=== PATIENT | female | born 1940 | race Caucasian/White ===

== ENCOUNTER 2019-05-04 09:08 | Outpatient (CLI) | payer MEDICARE, MEDICAID, SELFPAY ==
--- NOTE | ~2019-05-04 | XR_ITS ---
XR abdomen/kub 1V 05/04/2019 09:25 Indication: Hematuria Procedure: KUB Comparison: No prior studies for comparison. Findings: There is an 8 mm right renal stone. Bowel gas pattern is nonobstructive. There are pelvic c alcifications, likely vascular. Nonobstructive bowel gas pattern. There are cholecystectomy clips. Th ere is a right pleural effusion. Impression: 1: Right nephrolithiasis. 2: Small right pleural effusion. Reviewed, dictated and finalized at location A. Impression: 1: Right nephrolithiasis. 2: Small right pleural effusion.
--- NOTE | ~2019-05-04 | CT_ITS ---
EXAMINATION: CT abdomen pelvis wo/w con DATE: 05/04/2019 10:01 INDICATION: Recurrent bladder infections. TECHNIQUE: Computed tomography (CT) of the abdomen and pelvis was performed without intravenous contr ast. The dose-length product was 1132.98 mGy-cm. Automated exposure control and iterative reconstruct ion technique were employed. COMPARISON: Pet/CT dated 04/10/2018 FINDINGS: Status post partial right pneumonectomy with right pleural effusion. Mediastinal shift to t he right, consistent with volume loss. There is some solid 9 x 7 mm nodule in the lingula which is no t significantly changed allowing for differences of technique from prior examination. There is bronch iectasis centrally in the right lung with peripheral reticulonodular densities, most likely infectiou s/inflammatory. Status post cholecystectomy. The liver surface appears nodular, suspicious for cirrhosis. Status post cholecystectomy. The spleen, pancreas, adrenal glands are unremarkable. There is a 3.3 cm left renal cyst. There are small subcentimeter hypodensities of both kidneys, also likely benign cysts. Bowel p attern is nonobstructive. Colonic diverticulosis without evidence for diverticulitis. There is a 3.2 cm infrarenal abdominal aortic aneurysm. No lymphadenopathy. Normal appendix. No free air or free flu id. Bladder is unremarkable. Uterus is likely surgically absent. There is a 6 mm nonobstructing right renal stone. IMPRESSION: 1. 6 mm nonobstructing right renal stone. 2: Nodular liver surface, suspicious for cirrhosis. 3: Infrarenal abdominal aortic aneurysm measuring 3.2 cm. 4: Status post partial right pneumonectomy with pleural effusion. Mediastinal shift to the right, con sistent with volume loss. 5:. 9 x 7 mm subsolid nodule in the lingula without significant change. 6: Coarse reticulonodular densities in the visualized lung periphery, most likely infectious/inflamma tory. Bronchiectasis. Reviewed, dictated and finalized at location A. IMPRESSION: 1. 6 mm nonobstructing right renal stone. 2: Nodular liver surface, suspicious for cirrhosis. 3: Infrarenal abdominal aortic aneurysm measuring 3.2 cm. 4: Status post partial right pneumonectomy with pleural effusion. Mediastinal s hift to the right, consistent with volume loss. 5:. 9 x 7 mm subsolid nodule in the lingula without significant change. 6: Coarse reticulonodular densities in the visualized lung periphery, most like ly infectious/inflammatory. Bronchiectasis.
[2019-05-04 09:37] LABS: Estimated Glomerular Filt Rate 60
== END 2019-05-04 09:09 | disposition home or self-care (01) ==
PROVIDERS: PCP Family Medicine; Visit Provider Nurse Practitioner Adult Health
DX: R31.29 Other microscopic hematuria (principal); N20.0 Calculus of kidney; R93.2 Abnormal findings on diagnostic imaging of liver and biliary tract; I71.4 Abdominal aortic aneurysm, without rupture; Z90.2 Acquired absence of lung [part of]; J90 Pleural effusion, not elsewhere classified; R91.8 Other nonspecific abnormal finding of lung field
CPT/HCPCS: 36415; 74018; 74178; Q9967

== ENCOUNTER 2019-07-27 00:29 | Outpatient (CLI) | payer MEDICARE, MEDICAID, SELFPAY ==
[2019-07-27 17:00] LABS: SARS-CoV-2 RNA PCR Negative
== END 2019-07-27 00:30 | disposition home or self-care (01) ==
LOC: ANHCOVIDDT 00:29
PROVIDERS: PCP Family Medicine; Visit Provider Internal Medicine Gastroenterology
DX: Z01.818 Encounter for other preprocedural examination (principal); Z11.59 Encounter for screening for other viral diseases
CPT/HCPCS: 87635; C9803; U0003

== ENCOUNTER 2019-07-29 01:40 | Day surgery (SDC) | payer MEDICARE, MEDICAID, SELFPAY ==
[2019-07-22 16:02] VITALS: BMI 31.2
[2019-07-29] MEDS: LACTATED RINGERS 1,000 ML 150 ML IV CONT (07:47)
--- NOTE | 2019-07-29 07:47 | PM.HPGS ---
History of Present Illness History of Present Illness Consent: Risks, benefits, and alternatives have been discussed and questions answered. Patient agrees to proceed with procedure. Chief complaint: hx of polyps Narrative: Lorie Chauhan is a 79 year old female with history of colon polyps having screening colonoscopy COUNT INCLUDES THE [facility] Past Medical History Medical History Hypertension Lung cancer Status post right lower lobectomy in May 2018. She received chemotherapy and radiation. She is followed by an oncologist at [facility] [place]. Tobacco dependence Surgical History Surgical History History of cholecystectomy History of lobectomy of lung Right lower lobectomy for lung cancer. History of partial hysterectomy Social History Social History Social History: Mrs. Chauhan is and lives in her own home in [place]. She designates her son, Golden Chauhan, as her surrogate decision maker and she wishes to be a full code. She smokes a half a pack of cigarettes per day and has for 40 years. She denies alcohol and illicit drug use. Her primary care provider is Dr. Lourdes Glasgow. Meds Home Medications and Allergies Home Medications Medication Instructions Recorded Confirmed Type hydrochlorothiazide 25 mg PO DAILY 01/09/19 07/29/19 History rivaroxaban [Xarelto] 20 mg PO QPM 30 Days #30 tablet 01/27/19 07/29/19 Rx cephalexin 250 mg PO DAILY 07/22/19 07/29/19 History Allergies Allergy/AdvReac Type Severity Reaction Status Date / Time povidone-iodine AdvReac Rash Verified 07/29/19 07:36 [From Betadine] soap [From Betadine] AdvReac Rash Verified 07/29/19 07:36 Exam Resp: Auscultation: clear to auscultation bilaterally Cardio: Rate: regular rate Rhythm: regular rhythm GI: GI Palp: Yes Soft to palpation and No Tenderness to palpation present (GI) Assessment and Plan Assessment and plan (1) Personal history of colonic polyps: Code(s): Z86.010 - Personal history of colonic polyps Status: Acute Assessment and Plan: Colonoscopy with possible biopsy or polypectomy or cautery or injection of substances.
--- NOTE | 2019-07-29 07:57 | P.PNAN_ITS ---
Anes - Initial Pre Proc Eval Procedure: Operation Date: 07/29/19 08:30 Proposed Procedures p Screening Colonoscopy - Edgardo Acevedo MD Date/Time: 07/29/19 07:57 Surgeon: Edgardo Acevedo MD Pre Op Diagnosis: hx of polyps Patient Data Age: 79 Gender: F Height: 5 ft 1 in Weight: 76.4 kg Allergies Allergy/AdvReac Type Severity Reaction Status Date / Time povidone-iodine AdvReac Rash Verified 07/29/19 07:36 [From Betadine] soap [From Betadine] AdvReac Rash Verified 07/29/19 07:36 Home Medications Medication Instructions Recorded Confirmed Type hydrochlorothiazide 25 mg PO DAILY 01/09/19 07/29/19 History rivaroxaban [Xarelto] 20 mg PO QPM 30 Days #30 tablet 01/27/19 07/29/19 Rx cephalexin 250 mg PO DAILY 07/22/19 07/29/19 History Patient hx anesthesia problems: none Family hx anesthesia problems: none PMFSH Past Medical History Medical History Hypertension Lung cancer Status post right lower lobectomy in May 2018. She received chemotherapy and radiation. She is followed by an oncologist at [facility]. Tobacco dependence Surgical History Surgical History History of cholecystectomy History of lobectomy of lung Right lower lobectomy for lung cancer. History of partial hysterectomy Family History Family History Sibling Family history of malignant neoplasm Social History Social History Social History: Mrs. Chauhan is and lives in her own home in [place]. She designates her son, Golden Chauhan, as her surrogate decision maker and she wishes to be a full code. She smokes a half a pack of cigarettes per day and has for 40 years. She denies alcohol and illicit drug use. Her primary care provider is Dr. Lourdes Glasgow. Anes - Eval Final PreProcedure Day of Procedure 07/29/19 07:57 Patient weight: obese Heart: regular rate and rhythm Lungs: clear to auscultation Airway: Mallampati scale class 1 Neurological: alert and oriented Last oral intake: >/= 8 hours ASA classification: III Emergent: no Anesthetic plan: proceed Anesthesia type and monitoring: general GIVS and standard monitoring Informed Consent: The patient's anesthetic plan and its attendant risks and benefits were discussed with the patient/family/POA. Questions were solicited and answers provided to the satisfaction of the patient/family/POA.
[2019-07-29 08:42] VITALS: BP 89/45; PULSE 80; RESP 19; O2SAT 97
[2019-07-29 08:52] VITALS: BP 95/54; PULSE 87; RESP 20; O2SAT 98
[2019-07-29 09:02] VITALS: BP 104/68; PULSE 88; RESP 25; O2SAT 97
== END 2019-07-29 09:21 | disposition home or self-care (01) ==
PROVIDERS: PCP Family Medicine; Visit Provider Internal Medicine Gastroenterology
PROC: 0DJD8ZZ Inspection of Lower Intestinal Tract, Via Natural or Artificial Opening Endoscopic (ICD-10-PCS; CPT 45378; principal; 2019-07-29 08:30)
DX: Z12.11 Encounter for screening for malignant neoplasm of colon (principal); D12.3 Benign neoplasm of transverse colon; K57.30 Diverticulosis of large intestine without perforation or abscess without bleeding; K64.8 Other hemorrhoids; I10 Essential (primary) hypertension; Z79.01 Long term (current) use of anticoagulants; Z85.118 Personal history of other malignant neoplasm of bronchus and lung; Z90.2 Acquired absence of lung [part of]; E66.9 Obesity, unspecified; Z68.31 Body mass index [BMI] 31.0-31.9, adult; Z87.891 Personal history of nicotine dependence
CPT/HCPCS: 45385; 88305; J2704; J7120

== ENCOUNTER 2020-12-16 09:16 | Outpatient (CLI) | payer MEDICARE, MEDICAID, SELFPAY ==
--- NOTE | ~2020-12-16 | US_ITS ---
EXAMINATION: US aorta EXAM DATE: 12/16/2020 09:56 INDICATION: Abdominal aortic aneurysm. TECHNIQUE: Multiple grayscale and Doppler images of the abdominal aorta were obtained (by a technolog ist who performed the scan) and subsequently reviewed. There is no prior study for comparison. Corre lation was made with CT abdomen pelvis 05/03/2020. FINDINGS: The proximal abdominal aorta measures 3.0 cm in maximal dimension. Mid to distal abdominal aorta chaparro ures up to 3.6 cm in maximal dimension (previously was about 3.3 cm 1.5 years ago). There may indicat e slight increase in size, given differences in technique. IMPRESSION: 1. Mid to distal abdominal aortic 3.6 cm aneurysm. Reviewed, dictated and finalized at location A.
== END 2020-12-16 09:17 | disposition home or self-care (01) ==
PROVIDERS: PCP Family Medicine; Visit Provider Family Medicine
DX: I71.4 Abdominal aortic aneurysm, without rupture (principal)
CPT/HCPCS: 76775

== ENCOUNTER 2023-09-12 09:53 | Emergency (ER) | payer OTHER, SELFPAY ==
--- NOTE | 2023-09-12 10:06 | ED.DIZZY ---
HPI - Dizziness General Chief Complaint: Dizziness Stated Complaint: feels bad Time Seen by Provider: 09/12/23 10:08 Source: patient, RN notes reviewed and old records reviewed Mode of arrival: ambulatory Limitations: no limitations History of Present Illness HPI Narrative: Patient presents to Express Care initially complaining of dizziness. She reports that she has felt a little lightheaded and off balance for about 1 week. She reports that in the past she has had a UTI that caused her to feel the same way. She denies any back pain. She does report some urinary frequency and burning over the past couple of days. She denies any fever, chills, sweats. She does report chronic cough, states that she is a smoker. Is observed ambulating with a steady gait. She voices no other concerns or complaints today. Related Data Home Medications Medication Instructions Recorded Confirmed hydrochlorothiazide 25 mg tablet 25 mg PO DAILY 01/09/19 09/12/23 Allergies Allergy/AdvReac Type Severity Reaction Status Date / Time povidone-iodine AdvReac Rash Verified 09/12/23 10:14 [From Betadine] soap [From Betadine] AdvReac Rash Verified 09/12/23 10:14 Review of Systems Review of Systems: All systems reviewed & are unremarkable except as noted in HPI and below Constitutional: Constitutional: Reports as per HPI and Reports no additional constitutional complaints ENT: Reports system reviewed and no additional complaints, except as documented Cardiovascular: Cardiovascular: Reports no additional cardiovascular complaints Respiratory: Respiratory: Reports as per HPI and Reports no additional respiratory complaints Gastrointestinal: Gastrointestinal: Reports as per HPI and Reports no additional gastrointestinal complaints Genitourinary: Genitourinary: Reports dysuria, Denies flank pain and Reports urinary urgency Musculoskeletal: Musculoskeletal: Denies back pain Neurologic: Denies Abnormal speech present, Denies abnormal gait, Denies confusion, Reports dizziness, Denies frequent falls, Denies focal weakness, Denies numbness, Denies tingling and Denies paresthesias [facility] Past Medical History Medical History (Updated 09/12/23 @ 10:28 by Pati Rubio APRN) Hypertension Lung cancer Status post right lower lobectomy in May 2018. She received chemotherapy and radiation. She is followed by an oncologist at [facility] [place]. Tobacco dependence Surgical History Surgical History History of cholecystectomy History of lobectomy of lung Right lower lobectomy for lung cancer. History of partial hysterectomy Family History Family History Sibling Family history of malignant neoplasm Social History Social History Social History: Mrs. Chauhan is and lives in her own home in [place]. She designates her son, Golden Chauhan, as her surrogate decision maker and she wishes to be a full code. She smokes a half a pack of cigarettes per day and has for 40 years. She denies alcohol and illicit drug use. Her primary care provider is Dr. Lourdes Glasgow. Comments At the time of my signature, I reviewed and agree with the nursing past medical, surgical, social, and family history. There is no relevant family history pertinent to the patient complaint. Exam Const: General: cooperative, no acute distress, alert and awake Orientation/consciousness: oriented to person, oriented to place and oriented to time HENMT: Head: normal to inspection Ears: TM's normal bilaterally Resp: Effort & Inspection: normal respiratory effort and able to speak in complete sentences Auscultation: clear to auscultation bilaterally, no crackles, no rales, no rhonchi, no wheezes and diminished lung sounds bilateral throughout Cardio: Palpation: normal PMI Rate: regular rate Rhy
[2023-09-12 10:08] VITALS: BP 141/103; PULSE 110; RESP 16; TEMP 36.7; O2SAT 98
[2023-09-12 10:22] LABS: EDUAAPPEAR Clear; EDUABILI Negative; EDUABLOOD Trace; EDUACOLOR1 Yellow; EDUAGLUCOSE Negative; EDUAKETONE Negative; EDUALEUKO 1+; EDUANITRATE Negative; EDUAPROTEIN Negative; EDUASPGRAVITY 1.015; EDUAUROBILI 0.2
[2023-09-12 10:24] VITALS: BP 121/77; PULSE 82
== END 2023-09-12 10:43 | disposition home or self-care (01) ==
PROVIDERS: Emergency Provider Nurse Practitioner Family; PCP Nurse Practitioner Family
DX: N39.0 Urinary tract infection, site not specified (principal); I10 Essential (primary) hypertension; Z85.118 Personal history of other malignant neoplasm of bronchus and lung; Z90.2 Acquired absence of lung [part of]; Z92.21 Personal history of antineoplastic chemotherapy; Z92.3 Personal history of irradiation; Z90.711 Acquired absence of uterus with remaining cervical stump
CPT/HCPCS: 81003; 87086; 87088; 99213; G0463

== ENCOUNTER 2023-09-23 11:17 | Emergency (ER) | payer OTHER, SELFPAY ==
[2023-09-23] VITALS (21 sets, daily range): BP systolic 113–157; BP diastolic 78–101; PULSE 97–149; RESP 13–28; TEMP 36.5–36.6; O2SAT 87–97
--- NOTE | ~2023-09-23 | CT_ITS ---
EXAMINATION: CT brain wo con DATE: 09/23/2023 14:36 INDICATION: Headache TECHNIQUE: Computed tomography (CT) of the head was performed without intravenous contrast. Sagittal and coronal reconstructions were performed. The mA was adjusted according to patient size. Iterative reconstruction technique was employed. The dose-length product was 529.67 mGy-cm. COMPARISON: head CT dated 03/01/2019 FINDINGS: No acute intracranial hemorrhage, acute infarction or abnormal extra axial fluid collection. There is mild scattered white matter hypoattenuation consistent with chronic small vessel ischemic disease. V entricles are normal and symmetric. Symmetric dystrophic calcifications at the bilateral basal gangli a. No mass/mass effect. Changes of bilateral intraocular lens replacement. Intracranial calcified cer ebral atherosclerosis is noted. The orbits, paranasal sinuses and mastoid air cells are normal. IMPRESSION: 1. Normal aging brain. No acute intracranial process. Reviewed, dictated and finalized at location A.
--- NOTE | 2023-09-23 13:41 | ED.HA ---
HPI - Headache General Chief Complaint: Headache Stated Complaint: headache, nausea Time Seen by Provider: 09/23/23 13:16 History of Present Illness HPI Narrative: Pt presents with OLSEN and dizziness today. Pt says her dizziness is better when still and worse when she moves her head or gets up and walks. Pt is unsteady on her feet and gets nauseated. Pt denies one sided weakness. Pt also has frequent UTI's and just finished macrobid course. Related Data Home Medications Medication Instructions Recorded Confirmed hydrochlorothiazide 25 mg tablet 25 mg PO DAILY 01/09/19 09/12/23 Allergies Allergy/AdvReac Type Severity Reaction Status Date / Time povidone-iodine AdvReac Rash Verified 09/12/23 10:14 [From Betadine] soap [From Betadine] AdvReac Rash Verified 09/12/23 10:14 Review of Systems Review of Systems: All systems reviewed & are unremarkable except as noted in HPI and below PMFSH Past Medical History Medical History (Updated 09/23/23 @ 15:21 by Reg Rushing III, DO) Hypertension Lung cancer Status post right lower lobectomy in May 2018. She received chemotherapy and radiation. She is followed by an oncologist at [facility]. Tobacco dependence Surgical History Surgical History History of cholecystectomy History of lobectomy of lung Right lower lobectomy for lung cancer. History of partial hysterectomy Family History Family History Sibling Family history of malignant neoplasm Social History Social History Social History: Mrs. Chauhan is and lives in her own home in [place]. She designates her son, Golden Chauhan, as her surrogate decision maker and she wishes to be a full code. She smokes a half a pack of cigarettes per day and has for 40 years. She denies alcohol and illicit drug use. Her primary care provider is Dr. Lourdes Glasgow. Exam Const: General: healthy appearing and no acute distress Nutritional Appearance: well nourished Orientation/consciousness: patient oriented x3 Limitations: no limitations HENMT: Ears: TM abnormal bulging on the left Eyes: Pupils: Equal, round and reactive pupils present EOM: EOMs intact bilaterally Neck: Neck: normal visual inspection Resp: Effort & Inspection: normal respiratory effort Auscultation: clear to auscultation bilaterally Cardio: Rate: regular rate Rhythm: regular rhythm GI: GI Palp: Yes Soft to palpation and No Tenderness to palpation present (GI) Auscultation: normal bowel sounds Skin: General skin exam: normal color Rashes: no rashes Wounds: no wounds Neuro: General: patient oriented x3, moves all extremities, no meningeal signs, no focal motor deficits and CN's II-XI intact bilaterally Cranial nerves: Yes Nystagmus present Speech: normal speech Other: dizziness reproduced with moving head to right and beter when still. Extrem: General: normal to inspection and no clubbing, cyanosis or edema Psych: Mental Status: mental status grossly normal Affect: normal affect Attitude: cooperative Course Vital Signs Vital signs: Vital Signs Pulse Rate 149 H 09/23/23 11:22 Pulse Oximetry 97 09/23/23 11:22 Temperature 97.9 F 09/23/23 15:45 Pulse Rate 110 H 09/23/23 14:48 Respiratory Rate 16 09/23/23 14:48 Blood Pressure 126/94 H 09/23/23 13:31 Pulse Oximetry 97 09/23/23 15:32 MDM - Headache MDM Narrative Medical decision making narrative: Pt has pretty classic vertigo symptoms so will give meclizine but also has olsen and chronic uti's so will get CT head and check labs and UA. labs and UA fine. CT neg. Pt feels better after antivert. home on antivert and zofran Lab Data 09/23/23 12:10 09/23/23 12:10 Labs: Lab Results 09/23/23 Range/Units 12:10 WBC 8.1 (4.
[2023-09-23 13:51] LABS: Basophils Absolute Auto 0.1 K/mm3 (0.0-0.1); Basophils Percent Auto 0.7 % (0.2-1.2); Eosinophils Absolute Auto 0.1 K/mm3 (0-0.3); Eosinophils Percent Auto 1.2 % (0-4.4); Hematocrit 45.6 % (37.0-47.0); Hemoglobin 15.3 g/dL (12.0-15.0); Immature Granulocyte Absolute 0.02 K/mm3 (0.00-0.031); Immature Granulocyte Percent A 0.2 % (0-0.5); Lymphocytes Absolute Auto 1.32 K/mm3 (0.9-3.2); Lymphocytes Percent Auto 16.3 % (18.3-44.2); Mean Corpuscular HGB Conc 33.6 g/dl (32-36); Mean Corpuscular Hemoglobin 31.5 pg (26-34); Mean Platelet Volume 10.3 fl (7.4-10.4); Monocytes Absolute Auto 0.4 K/mm3 (0.1-0.6); Monocytes Percent Auto 4.8 % (2.6-8.5); Neutrophils Absolute Auto 6.2 K/mm3 (1.3-6.7); Neutrophils Percent Auto 76.8 % (45.5-73.1); Platelet Count Result 182 k/mm3 (150-375); Red Blood Count 4.85 M/mm3 (4.2-5.4); Red Cell Distribution Width 13.6 % (11.5-14.5); White Blood Count 8.1 K/mm3 (4.5-10.0)
[2023-09-23 13:56] LABS: Add Urine Microscopic? YES; Alanine Aminotransferase 12 U/L (6-35); Albumin Level 4.2 g/dL (3.5-5.1); Alkaline Phosphatase 95 U/L (38-126); Anion Gap 10 mmol/L (4-12); Appearance Urine Clear (Clear); Aspartate Amino Transferase 35 U/L (14-36); Bacteria Urine None Seen /hpf; Bilirubin Urine Negative (Negative); Bilirubin,Total 0.7 mg/dL (0.2-1.3); Blood Urea Nitrogen 18 mg/dL (7-17); Blood Urine Trace (Negative); Calcium 9.5 mg/dL (8.4-10.2); Carbon Dioxide 27 mmol/L (22-30); Chloride 99 mmol/L (98-107); Color Urine Yellow (Yellow); Estimated CRCL calculation 46 ml/min; Estimated Glomerular Filt Rate > 60; Glucose 106 mg/dL (65-110); Glucose Urine UA Negative (Negative); Ketones Urine Negative (Negative); Leukocyte Esterase Ur Trace LEU/UL (Negative); Nitrate Urine Negative (Negative); Non Pathogenic Casts 0-2; Potassium 4.1 mmol/L (3.4-5.0); Protein Urine Negative (Negative); RBC Urine 0-2 /hpf (0-2); Sodium 136 mmol/L (137-145); Specific Grav Ur 1.012 (1.001-1.035); Squamous Epithelial Cell Urine Few /hpf (Few); Urobilinogen Urine 0.2 mg/dL (<2.0); WBC Urine 0-5 /hpf (0-3)
[2023-09-23] MEDS: MECLIZINE HCL 25 MG TABLET PO (14:14)
[2023-09-23] MEDS: fentaNYL CITRATE INJ (*CRX) 100 MCG/2 ML VIAL 25 MCG IV PUSH (14:14)
[2023-09-23] MEDS: ONDANSETRON INJ 4 MG/2 ML VIAL IV PUSH (14:14)
== END 2023-09-23 15:48 | disposition home or self-care (01) ==
PROVIDERS: Emergency Provider Emergency Medicine; PCP Nurse Practitioner Family
DX: R42 Dizziness and giddiness (principal); I10 Essential (primary) hypertension; F17.210 Nicotine dependence, cigarettes, uncomplicated; Z85.118 Personal history of other malignant neoplasm of bronchus and lung; Z92.21 Personal history of antineoplastic chemotherapy; Z92.3 Personal history of irradiation; Z90.2 Acquired absence of lung [part of]; Z90.49 Acquired absence of other specified parts of digestive tract; Z90.711 Acquired absence of uterus with remaining cervical stump
CPT/HCPCS: 36415; 70450; 80053; 81001; 85025; 96374; 96375; 99284; A9270; J2405; J3010

== ENCOUNTER 2024-05-04 16:02 | Emergency (ER) | payer OTHER, SELFPAY ==
[2024-05-04 16:16] VITALS: BP 135/90; PULSE 124; RESP 19; TEMP 37.1; O2SAT 97
--- NOTE | 2024-05-04 16:29 | ECG_ITS ---
Test Date: 2024-05-04 16:40:01 Measurements Intervals [place] Rate: 105 P: 58 MT: 140 QRS: 38 QRSD: 108 T: 51 QT: 328 QTc: 435 Interpretive Statements SINUS TACHYCARDIA WITH FREQUENT SUPRAVENTRICULAR PREMATURE COMPLEXES No previous ECG available for comparison Electronically Signed On 05-05-2024 15:56:50 CDT by Lalit Guerrero M.D.
[2024-05-04 16:30] VITALS: PULSE 105; RESP 26; O2SAT 97
[2024-05-04 16:50] LABS: EDCOVIDSCREEN Negative (Negative); EDINFLUASCREEN Negative (Negative); EDINFLUBSCREEN Negative (Negative)
--- NOTE | 2024-05-04 17:05 | ED_ITS ---
HPI - URI/Sore Throat General Chief Complaint: Upper Respiratory Infection Stated Complaint: flu symptoms Time Seen by Provider: 05/04/24 16:50 Source: patient, family (Granddaughter) and RN notes reviewed Mode of arrival: ambulatory Limitations: no limitations History of Present Illness HPI Narrative: Patient presents today complaining of a 3 day history of cough, shortness of breath, headache, sneezing, right mid back pain, nausea, subjective fever. She states diarrhea started yesterday and she had 1 episode of incontinence today. Granddaughter who accompanied her here today states, ?she is not quite with it. ? Patient has taken some [id number]-snmtxpy medication symptoms. History of lung cancer with right lobectomy. Patient does continue to smoke Related Data Home Medications ?Medication ?Instructions ?Recorded ?Confirmed ?Last Taken ?Type budesonide 160 mcg-glycopyr 9 inh inhalation 05/04/24 Unknown History mcg-formot 4.8 mcg/actuation HFA inhaler (Breztri Aerosphere) fluticasone 250 mcg-salmeterol 50 inhalation 05/04/24 Unknown History mcg/dose blistr powdr for inhalation hydrochlorothiazide 12.5 mg tablet mg 05/04/24 Unknown History Allergies Allergy/AdvReac Type Severity Reaction Status Date / Time povidone-iodine (From AdvReac Rash Verified 05/04/24 16:05 Betadine) soap (From Betadine) AdvReac Rash Verified 05/04/24 16:05 Review of Systems Review of Systems: CONSTITUTIONAL: + subjective fever EYES: Denies visual changes, redness, or discharge. ENT: Denies rhinorrhea, congestion, sore throat, or otalgia.+ sneezing CARDIOVASCULAR: Denies chest pain, palpitations, or edema. RESPIRATORY: + cough, shortness of breath GASTROINTESTINAL: Denies abdominal pain, vomiting. + nausea, diarrhea GENITOURINARY: Denies dysuria or hematuria. SKIN: Denies rash, itching, or wounds. MUSCULOSKELETAL: Denies joint pain, or myalgia.+ back pain NEUROLOGIC: Denies numbness, tingling, or weakness.+ headache PSYCH: Denies depression or anxiety. [facility] Past Medical History Medical History Tobacco dependence Lung cancer Status post right lower lobectomy in May 2018. She received chemotherapy and radiation. She is followed by an oncologist at [facility]. Hypertension Surgical History Surgical History History of partial hysterectomy History of lobectomy of lung Right lower lobectomy for lung cancer. History of cholecystectomy Family History Family History Sibling Family history of malignant neoplasm Social History Social History Social History: Mrs. Chauhan is and lives in her own home in [place]. She designates her son, Golden Chauhan, as her surrogate decision maker and she wishes to be a full code. She smokes a half a pack of cigarettes per day and has for 40 years. She denies alcohol and illicit drug use. Her primary care provider is Dr. Lourdes Glasgow. Comments At time of signature, I have reviewed and agree with nursing past medical, surgical, social and family history unless otherwise noted. Please see nursing chart for further information. There is no relevant family history pertinent to the presenting complaint Exam Narrative: GENERAL: Mildly ill-appearing, well-nourished, and in no acute distress. HEAD: Normocephalic, atraumatic. EYES: EOMI. No redness or drainage. Conjunctivae normal. ENT: Mucous membranes pink and moist. Nares clear. No rhinorrhea. TMs normal bilaterally. Throat normal. Uvula midline. NECK: Normal AROM. Supple. No lymphadenopathy. CHEST: Mildly labored. Expiratory wheezes throughout. Diminished in the left lower lobe. HEART: Regular rhythm. Tachycardic. No murmur appreciated. EXTREMITIES: Normal range of motion. Mild edema feet, baseline per g randdaughter SKIN: Warm, dry, no rash. Capillary refill normal. Normal skin turgor. NEURO: No focal deficits. Alert and oriented x3. PSYCH: Normal affect. No signs of depression or anxiety. Course Course Level of Care: Express Care Visit Vital Signs Vital signs: Vital Signs Temperature 98.8 F 05/04/24 16:16 Pulse Rate 124 H 05/04/24 16:16 Respiratory Rate 19 05/04/24 16:16 Blood Pressure 135/90 05/04/24 16:16 Pulse Oximetry 97 05/04/24 16:16 Oxygen Delivery Room Air 05/04/24 16:16 Temperature 98.8 F 05/04/24 16:16 Pulse Rate 105 H 05/04/24 16:30 Respiratory Rate 26 H 05/04/24 16:30 Blood Pressure 135/90 05/04/24 16:16 Pulse Oximetry 97 05/04/24 16:30 Oxygen Delivery Room Air 05/04/24 16:16 Reviewed Transfer Transfered to: [place] Transportation: Other (Private vehicle) Transfer rationale: Shortness of breath, cough, tachycardia Accepting physician: Karan. Report given to Flor Arias NP MDM - URI/Sore Throat MDM Narrative Medical decision making narrative: Patient will be transferred to the ER for further evaluation and treatment due to shortness of breath, wheezing, tachycardia. Influenza and COVID swabs negative. Differential Diagnosis Differential diagnosis: Likely upper respiratory infection, viral infection, influenza and other (COVID-19, pneumonia, sepsis, respiratory distress) Lab Data Attestation: I reviewed the patient's lab results. Labs: Lab Results 05/04/24 Range/Units 16:48 POC Influenza A Ag Negative (Negative) POC Influenza B Ag Negative (Negative) POC SARS CoV-2 Ag Negative (Negative) ECG Data EKG #1: Attestation: I personally reviewed and interpreted this ECG as follows: ECG completion date: 05/04/24 ECG completion time: 16:40 Prior ECG tracings: not available for review (PDF would not open. Review of report grossly similar.) Interpretation: Sinus tachycardia with frequent supraventricular premature complexes. Heart rate 105, NH interval 140 Critical Care Time Critical Care Time Critical Care Time: No Discharge Plan Discharge Clinical Impression: Shortness of breath Cough Qualifiers: Cough type: acute Qualified Code(s): R05.1 - Acute cough Patient Disposition: Acute Care Hospital Condition: Stable Patient Language: Indonesian Prescriptions: No Action hydrochlorothiazide 12.5 mg tablet Breztri Aerosphere 160-9-4.8 mcg/actuation HFA aerosol inhaler INHALATION fluticasone propion-salmeterol 250-50 mcg/dose blister with device INHALATION Follow-up/Referrals: Davon,Smiley, [employer] [Primary Care Provider] - Time of Disposition: 17:06
== END 2024-05-04 17:05 | disposition short-term general hospital (02) ==
PROVIDERS: Emergency Provider Nurse Practitioner; PCP Nurse Practitioner Family
DX: R06.02 Shortness of breath (principal); R05.1 Acute cough; R00.0 Tachycardia, unspecified; Z20.822 Contact with and (suspected) exposure to COVID-19; I10 Essential (primary) hypertension; F17.210 Nicotine dependence, cigarettes, uncomplicated; Z85.118 Personal history of other malignant neoplasm of bronchus and lung; Z90.2 Acquired absence of lung [part of]; Z90.711 Acquired absence of uterus with remaining cervical stump
CPT/HCPCS: 87426; 87804; 93005; 99213; G0463

== ENCOUNTER 2024-05-04 17:29 | Emergency (ER) | payer OTHER, SELFPAY ==
--- NOTE | ~2024-05-04 | XR_ITS ---
EXAMINATION: XR chest 2V Exam Date/Time: 05/04/2024 18:27 CDT HISTORY: shortness of breath, cough Comparison: 01/26/2019. RESULT: Lines, tubes, and devices: Cholecystectomy clips. Lungs and pleura: Mild diffuse reticular opacities. Mild bilateral costophrenic angle blunting, righ t greater than left. Lobectomy changes in the right hemithorax. Cardiomediastinal silhouette: Stable. Dilated central pulmonary arteries as can be seen with pulmona ry hypertension Other: No acute osseous or upper abdominal finding. IMPRESSION: Mild interstitial edema. Small bilateral pleural effusions. Reviewed, dictated and finalized at location K.
--- NOTE | 2024-05-04 17:48 | ECG_ITS ---
Test Date: 2024-05-04 17:57:53 Measurements Intervals [place] Rate: 118 P: 75 [place]: 150 QRS: 62 QRSD: 108 T: 62 QT: 310 QTc: 435 Interpretive Statements SINUS TACHYCARDIA WITH PACS Compared to ECG 05/04/2024 16:40:01 No significant changes Electronically Signed On 05-05-2024 15:57:42 CDT by Lalit Guerrero M.D.
--- NOTE | 2024-05-04 17:49 | ED.SOB ---
HPI - SOB/Dyspnea General Chief Complaint: Recheck/Abnormal Lab/Rx <Gerda Arias APRN - Last Filed: 05/04/24 17:52> Stated Complaint: sent from for abnormal labs <Gerda Arias APRN - Last Filed: 05/04/24 17:52> Time Seen by Provider: 05/04/24 17:49 <Gerda Arias APRN - Last Filed: 05/04/24 17:52> Focused HPI: Patient is an 84-year-old female who presents from urgent care. She endorses recent shortness of breath, recurrent mid back pain, cough, wheezing, and diarrhea yesterday. Per the healthcare provider at urgent care, patient presented there with an elevated heart rate along with the other symptoms listed above. Patient's medical history includes lung cancer and a right lobectomy. GENERAL: Well-appearing, well-nourished, and in no acute distress. HEAD: Normocephalic, atraumatic. CHEST: Clear to auscultation. ?No respiratory distress. HEART: Regular rate and rhythm.? NEURO: ?Alert and oriented x3. Patient screened in triage and initial orders placed.? ?Additional care and disposition to be based upon?diagnostic testing and treatment. <Gerda Arias APRN - Last Filed: 05/04/24 17:52> History of Present Illness HPI Narrative: Agree with HPI. Cough for several days with occasional shortness of breath. No chest pain. Sent here for elevated heart rate. <Miles Almanza MD - Last Filed: 05/04/24 22:43> Related Data Home Medications: Home Medications ?Medication ?Instructions ?Recorded ?Confirmed ?Last Taken ?Type budesonide 160 mcg-glycopyr 9 inh inhalation 05/04/24 Unknown History mcg-formot 4.8 mcg/actuation HFA inhaler (Breztri Aerosphere) fluticasone 250 mcg-salmeterol 50 inhalation 05/04/24 Unknown History mcg/dose blistr powdr for inhalation hydrochlorothiazide 12.5 mg tablet mg 05/04/24 Unknown History <Gerda Arias APRN - Last Filed: 05/04/24 17:52> Allergies/Adverse Reactions: Allergies Allergy/AdvReac Type Severity Reaction Status Date / Time povidone-iodine (From AdvReac Rash Verified 05/04/24 16:05 Betadine) soap (From Betadine) AdvReac Rash Verified 05/04/24 16:05 <Gerda Arias APRN - Last Filed: 05/04/24 17:52> Review of Systems Review of Systems: All systems reviewed & are unremarkable except as noted in HPI and below <Miles Almanza MD - Last Filed: 05/04/24 22:43> Constitutional: Constitutional: Reports no additional constitutional complaints <Miles Almanza MD - Last Filed: 05/04/24 22:43> Cardiovascular: Cardiovascular: Reports no additional cardiovascular complaints <Miles Almanza MD - Last Filed: 05/04/24 22:43> Respiratory: Respiratory: Reports no additional respiratory complaints <Miles Almanza MD - Last Filed: 05/04/24 22:43> Gastrointestinal: Gastrointestinal: Reports no additional gastrointestinal complaints <Miles Almanza MD - Last Filed: 05/04/24 22:43> [facility] Past Medical History Medical History: Medical History (Updated 05/04/24 @ 22:40 by Miles Almanza MD) Tobacco dependence Lung cancer Status post right lower lobectomy in May 2018. She received chemotherapy and radiation. She is followed by an oncologist at [facility]. Hypertension <Gerda Arias APRN - Last Filed: 05/04/24 17:52> Surgical History Surgical History: Surgical History History of partial hysterectomy History of lobectomy of lung Right lower lobectomy for lung cancer. History of cholecystectomy <Gerda Arias APRN - Last Filed: 05/04/24 17:52> Family History Family History: Family History Sibling Family history of malignant neoplasm <Gerda Arias APRN - Last Filed: 05/04/24 17:52> Social History Social History: Social History Social History: Mrs. Chauhan is and lives in her own home in [place]. She designates her son, Golden Chauhan, as her surrogate decision maker and she wishes to be a full code. She smokes a half a pack of cigarettes per day and has for 40 years. She denies alcohol and illicit drug use. Her primary care provider is Dr. Lourdes Glasgow. <Gerda Arias APRN - Last Filed: 05/04/24 17:52> Exam Narrative: GENERAL: Well-appearing, well-nourished, and in no acute distress. HEAD: Normocephalic, atraumatic. ENT: Mucous membranes moist. NECK: Supple. CHEST: Scattered rhonchi in wheezing. No respiratory distress. HEART: Tachycardic and regular. Normal peripheral pulses. ABDOMEN: Soft, nontender, nondistended. EXTREMITIES: Normal range of motion. No edema. SKIN: Warm, dry, no rash. NEURO: Alert and oriented x3. PSYCH: Normal mood and affect. <Miles Almanza MD - Last Filed: 05/04/24 22:43> Course Course Emergency Course: Patient resting comfortably. Lung sounds improving after nebulizer treatment. Patient was taught how to use a spacer by respiratory therapy. Will discharge with rescue inhaler steroids and antibiotics for COPD exacerbation. <Miles Almanza MD - Last Filed: 05/04/24 22:43> Vital Signs Vital signs: Vital Signs Temperature 98.4 F 05/04/24 17:54 Pulse Rate 118 H 05/04/24 17:54 Respiratory Rate 16 05/04/24 17:54 Blood Pressure 127/87 05/04/24 17:54 Pulse Oximetry 97 05/04/24 17:54 Oxygen Delivery Room Air 05/04/24 17:54 Temperature 98.4 F 05/04/24 17:54 Pulse Rate 115 H 05/04/24 22:31 Respiratory Rate 22 H 05/04/24 22:31 Blood Pressure 127/87 05/04/24 17:54 Pulse Oximetry 97 05/04/24 17:54 Oxygen Delivery Room Air 05/04/24 17:54 <Gerda Arias APRN - Last Filed: 05/04/24 17:52> Vital Signs Temperature 98.4 F 05/04/24 17:54 Pulse Rate 118 H 05/04/24 17:54 Respiratory Rate 16 05/04/24 17:54 Blood Pressure 127/87 05/04/24 17:54 Pulse Oximetry 97 05/04/24 17:54 Oxygen Delivery Room Air 05/04/24 17:54 Temperature 98.4 F 05/04/24 17:54 Pulse Rate 115 H 05/04/24 22:31 Respiratory Rate 22 H 05/04/24 22:31 Blood Pressure 127/87 05/04/24 17:54 Pulse Oximetry 97 05/04/24 17:54 Oxygen Delivery Room Air 05/04/24 17:54 <Miles Almanza MD - Last Filed: 05/04/24 22:43> MDM - SOB/Dyspnea Lab Data Result diagrams: 05/04/24 21:16 05/04/24 21:16 <Gerda Arias APRN - Last Filed: 05/04/24 17:52> Labs: Lab Results 05/04/24 Range/Units 21:16 WBC 6.9 (4.5-10.0) K/mm3 RBC 4.75 (4.2-5.4) M/mm3 Hgb 14.7 (12.0-15.0) g/dL Hct 44.1 (37.0-47.0) % MCV 92.8 (80-100) fl MCH 30.9 (26-34) pg MCHC 33.3 (32-36) g/dl RDW 13.5 (11.5-14.5) % Plt Count 137 L (150-375) k/mm3 MPV 9.7 (7.4-10.4) fl Immature Gran % (Auto) 0.4 (0-0.5) % Neut % (Auto) 75.5 H (45.5-73.1) % Lymph % (Auto) 15.3 L (18.3-44.2) % [place] % (Auto) 6.9 (2.6-8.5) % Eos % (Auto) 1.0 (0-4.4) % Baso % (Auto) 0.9 (0.2-1.2) % Lymph # (Auto) 1.06 (0.9-3.2) K/mm3 [place] # (Auto) 0.5 (0.1-0.6) K/mm3 Eos # (Auto) 0.1 (0-0.3) K/mm3 Baso # (Auto) 0.1 (0.0-0.1) K/mm3 Abs Immat Gran (auto) 0.03 (0.00-0.031) K/mm3 Absolute Neuts (auto) 5.2 (1.3-6.7) K/mm3 Absolute Nucleated RBC 0.000 (0.0-0.012) K/mm3 Nucleated RBC % 0.0 (0.0-0.2) % % Immature Plt Fraction 2.0 (0.9-11.2) % PT 14.3 (11.1-14.7) Seconds INR 1.1 APTT 41.5 H (22.3-36.8) Seconds Sodium 137 (137-145) mmol/L Potassium 3.8 (3.4-5.0) mmol/L Chloride 99 (98-107) mmol/L Carbon Dioxide 29 (22-30) mmol/L Anion Gap 9 (4-12) mmol/L BUN 14 (7-17) mg/dL Creatinine 0.71 (0.7-1.0) mg/dL Estim Creat Clear Calc 46 ml/min Estimated GFR > 60 (59 - ) Glucose 120 H (65-110) mg/dL Calcium 9.1 (8.4-10.2) mg/dL Total Bilirubin 0.7 (0.2-1.3) mg/dL AST 26 (14-36) U/L ALT 16 (6-35) U/L Alkaline Phosphatase 75 (38-126) U/L Troponin I < 0.012 (0.000-0.034) ng/mL NT-Pro-B Natriuret Pep 1650 H (19.9-100) pg/mL Total Protein 7.0 (6.3-8.2) g/dL Albumin 4.0 (3.5-5.1) g/dL <Gerda Arias, EMPLOYEE SERVICE OFFICER - Last Filed: 05/04/24 17:52> Lab Results 05/04/24 Range/Units 21:16 WBC 6.9 (4.5-10.0) K/mm3 RBC 4.75 (4.2-5.4) M/mm3 Hgb 14.7 (12.0-15.0) g/dL Hct 44.1 (37.0-47.0) % MCV 92.8 (80-100) fl MCH 30.9 (26-34) pg MCHC 33.3 (32-36) g/dl RDW 13.5 (11.5-14.5) % Plt Count 137 L (150-375) k/mm3 MPV 9.7 (7.4-10.4) fl Immature Gran % (Auto) 0.4 (0-0.5) % Neut % (Auto) 75.5 H (45.5-73.1) % Lymph % (Auto) 15.3 L (18.3-44.2) % [place] % (Auto) 6.9 (2.6-8.5) % Eos % (Auto) 1.0 (0-4.4) % Baso % (Auto) 0.9 (0.2-1.2) % Lymph # (Auto) 1.06 (0.9-3.2) K/mm3 [place] # (Auto) 0.5 (0.1-0.6) K/mm3 Eos # (Auto) 0.1 (0-0.3) K/mm3 Baso # (Auto) 0.1 (0.0-0.1) K/mm3 Abs Immat Gran (auto) 0.03 (0.00-0.031) K/mm3 Absolute Neuts (auto) 5.2 (1.3-6.7) K/mm3 Absolute Nucleated RBC 0.000 (0.0-0.012) K/mm3 Nucleated RBC % 0.0 (0.0-0.2) % % Immature Plt Fraction 2.0 (0.9-11.2) % PT 14.3 (11.1-14.7) Seconds INR 1.1 APTT 41.5 H (22.3-36.8) Seconds Sodium 137 (137-145) mmol/L Potassium 3.8 (3.4-5.0) mmol/L Chloride 99 (98-107) mmol/L Carbon Dioxide 29 (22-30) mmol/L Anion Gap 9 (4-12) mmol/L BUN 14 (7-17) mg/dL Creatinine 0.71 (0.7-1.0) mg/dL Estim Creat Clear Calc 46 ml/min Estimated GFR > 60 (59 - ) Glucose 120 H (65-110) mg/dL Calcium 9.1 (8.4-10.2) mg/dL Total Bilirubin 0.7 (0.2-1.3) mg/dL AST 26 (14-36) U/L ALT 16 (6-35) U/L Alkaline Phosphatase 75 (38-126) U/L Troponin I < 0.012 (0.000-0.034) ng/mL NT-Pro-B Natriuret Pep 1650 H (19.9-100) pg/mL Total Protein 7.0 (6.3-8.2) g/dL Albumin 4.0 (3.5-5.1) g/dL <Miles Almanza MD - Last Filed: 05/04/24 22:43> Imaging Data Radiologist's impression: ITS Impressions Chest X-Ray 05/04/24 19:44 IMPRESSION: Mild interstitial edema. Small bilateral pleural effusions. <Miles Almanza MD - Last Filed: 05/04/24 22:43> ECG Data EKG #1: ECG completion date: 05/04/24 <Miles Almanza MD - Last Filed: 05/04/24 22:43> ECG completion time: 17:57 <Miles Almanza MD - Last Filed: 05/04/24 22:43> EKG Interpretation: tachycardia (118), sinus rhythm, non-specific ST changes, normal QRS and normal QT <Miles Almanza MD - Last Filed: 05/04/24 22:43> Discharge Plan Discharge Clinical Impression: COPD exacerbation <Gerda Arias APRN - Last Filed: 05/04/24 17:52> Patient Disposition: Home, Self-Care <Gerda Arias APRN - Last Filed: 05/04/24 17:52> Condition: Stable <Gerda Arias APRN - Last Filed: 05/04/24 17:52> Instructions: COPD (Chronic Obstructive Pulmonary Disease) (ED) <Gerda Arias APRN - Last Filed: 05/04/24 17:52> Additional Instructions: Please return to the emergency department if you develop severe and persistent chest pain, difficulty breathing, dizziness, leg swelling or if you are coughing up blood as these can be signs of a medical emergency. Please call your doctor for a follow up appointment to determine the need for further testing. <Gerda Arias APRN - Last Filed: 05/04/24 17:52> Patient Language: Salvadorean <Gerda Arias APRN - Last Filed: 05/04/24 17:52> Prescriptions: New azithromycin 250 mg tablet See Rx Instructions .ROUTE .COMPLEX Qty: 6 0RF Rx Instructions: take 500 mg today (day 1), then 250 mg for 4 days (days 2-5) albuterol sulfate 90 mcg/actuation HFA aerosol inhaler 4 puff inhalation QID PRN (Reason: shortness of breath or wheezing) Qty: 8.5 0RF prednisone 20 mg tablet 40 mg PO DAILY 7 Days Qty: 14 0RF No Action hydrochlorothiazide 12.5 mg tablet Breztri Aerosphere 160-9-4.8 mcg/actuation HFA aerosol inhaler INHALATION fluticasone propion-salmeterol 250-50 mcg/dose blister with device INHALATION <Gerda Arias APRN - Last Filed: 05/04/24 17:52> Follow-up/Referrals: Davon,YURIY Reis [Primary Care Provider] - 1 Week <Gerda Arias APRN - Last Filed: 05/04/24 17:52>
[2024-05-04 17:54] VITALS: BP 127/87; PULSE 118; RESP 16; TEMP 36.9; O2SAT 97
--- OUTSIDE RECORDS SUMMARY | 2024-05-04 18:56 | XMS_ITS | Data Portability ---
Author Organization [place] [facility], Main Office Address [address] [place] [address] Assessment No assessment recorded. Plan of Treatment Reminders Order Date Submit Date Provider Last Modified By Organization Details Last Modified Time Details Appointments None recorded. Lab TSH, serum or plasma 2023 024 [facility] (Lab), [address] [place], [address], 4 17:25:13 vitamin D3, 25-hydroxy, serum 2023 024 [facility] (Lab), [address] [place], [address], 4 17:36:59 CBC w/ auto diff 2023 024 [facility] (Lab), [address] [place], [address], 4 14:47:38 BMP, serum or plasma 2023 024 [facility] (Lab), [address] [place], [address], 4 17:13:14 urinalysis complete, reflex culture [address] (Lab), [address] [place], [address], 3 09:46:26 Referral None recorded. Procedures None recorded. Surgeries None recorded. Imaging None recorded. Medication Orders prednisone 20 mg tablet 2022 023 [email or web address], [address] [place], [address], 10:51:57 polymyxin B sulfate 10,000 unit-trimet hoprim 1 mg/mL eye drops 2022 023 [facility], [address] [place], [address], 10:51:53 Patient TargetsNo targets recorded. Patient InstructionsNo instructions recorded. Reason for Referral None Reported. Results Created Date Observation Date Name Description Value Unit Range Abnormal Flag Note LastModifiedBy Organization Detail LastModifiedTime 03/05/1903/05/2022 BASIC METAB OLIC PANEL sodium 139 mmol/ L 137-14 5 Not Available [facility] (Lab) [address] [place], [address], 03/05/2022 21:50:15 03/05/19 23 03/05/2022 BASIC METAB OLIC PANEL potassium 4.1 mmol/ L 3.5-5. 1 Not Available [facility] (Lab) [address] [place], [address], 03/05/2022 21:50:15 03/05/19 23 03/05/2022 BASIC METAB OLIC PANEL chloride 101 mmol/ L 98-107 Not Available [facility] (Lab) [address] [place], [address], 03/05/2022 21:50:15 03/05/19 23 03/05/2022 BASIC METAB OLIC PANEL carbon dioxide 30 mmol/ L 22-30 Not Available [facility] (Lab) [address] [place], [address], 03/05/2022 21:50:15 03/05/19 23 03/05/2022 BASIC METAB OLIC PANEL anion gap 12.1 mmol/ L 14-22 low Not Available [facility] (Lab) [address] [place] [address], [address], 03/05/2022 21:50:15 03/05/19 23 03/05/2022 BASIC METAB OLIC PANEL glucose 103 mg/dL 70-99 high Not Available [facility] (Lab) [address] [place], [address], 03/05/2022 21:50:15 03/05/1903/05/2022 BASIC METAB OLIC PANEL BUN 13 mg/dL 8-19 Not Available [facility] (Lab) [address] [place], [address], 03/05/2022 21:50:15 03/05/1903/05/2022 BASIC METAB OLIC PANEL creatinine 0.73 mg/dL 0.66-1 .25 Not Available [facility] (Lab) [address] [place], [address], 03/05/2022 21:50:15 03/05/1903/05/2022 BASIC METAB OLIC PANEL GFR >60 Refer ence Range : [place] GFR Healt hy Adult : >60 mL/mi n/1.7 3 m2 Chron ic Kidne y Disea se: 15-60 mL/mi n/1.7 3 m2 Kidne y Failu re: <15/m L/min /1.73 m2 www.n iddk. nih.g ov The MDRD study equat ion has not been valid ated in child abigail <18 years of age; pregn ant women ; the elder ly >85 years of age; or in some racia l or ethni c subgr oups, such as Hispa nics. Outsi de the valid ated grant eters , estim ated GFR is less accur ate, requi ring clini jakob judgm ent on a case- by-ca se basis . Clini jakob inter preta tion for other races and ages must be made by the clini mayela. The MDRD study equat ion has not been valid ated for the evalu ation of serum creat inine relat ed to nutri omaira l statu s or medic ation usage . For perso ns <18 years of age, a pedia tric GFR calcu lator is avail able on the [employer] websi te: https ://hemalatha prieto.mark iglesias/pr ofess ional s/kdo qi/gf r_cal culat or Not Available [facility] (Lab) [address] [place], [address], 03/05/2022 21:50:15 03/05/1903/05/2022 BASIC METAB OLIC PANEL calcium 9.3 mg/dL 8.4-10 .2 Not Available [facility] (Lab) [address] [place], [address], 03/05/2022 21:50:15 03/05/1903/05/2022 VITAM IN D 25-HY DROXY [id number] 62.0 NG/mL 30-100 Vitam in D Statu s: Defic ient: <20 ng/mL Insuf ficie nt: 20-29 ng/mL Suffi cient : 30-10 0 ng/mL Not Available [facility] (Lab) [address] [place], [address], 03/05/2022 21:28:31 03/05/1903/05/2022 TSH thyroid-stim ulating hormone 2.220 uIU/m L 0.465- 4.680 Not Available [facility] (Lab) [address] [place], [address], 03/05/2022 21:14:07 03/05/19 23 03/05/2022 CBC/C OMPLE TE BLD COUNT W/DIF F white blood cells 7.4 x10'3 /uL 4.2-10 .8 Not Available [facility] (Lab) [address] [place], [address], 03/05/2022 19:47:50 03/05/19 23 03/05/2022 CBC/C OMPLE TE BLD COUNT W/DIF F red blood cells 4.94 x10'6 /uL 3.80-5 .20 Not Available [facility] (Lab) [address] [place], [address], 03/05/2022 19:47:50 03/05/1903/05/2022 CBC/C OMPLE TE BLD COUNT W/DIF F hemoglobin 15.3 g/dL 12.0-1 5.6 Not Available [facility] (Lab) [address] [place], [address], 03/05/2022 19:47:50 03/05/1903/05/2022 CBC/C OMPLE TE BLD COUNT W/DIF F hematocrit 47.6 % 35.7-4 5.7 high Not Available [facility] (Lab) [address] [place], [address], 03/05/2022 19:47:50 03/05/1903/05/2022 CBC/C OMPLE TE BLD COUNT W/DIF F mean red cell volume 96.4 fL 82.0-9 9.0 Not Available [facility] (Lab) [address] [place], [address], 03/05/2022 19:47:50 03/05/1903/05/2022 CBC/C OMPLE TE BLD COUNT W/DIF F mean red cell hemoglobin 31.0 pg 27.0-3 3.0 Not Available [facility] (Lab) [address] [place], [address], 03/05/2022 19:47:50 03/05/1903/05/2022 CBC/C OMPLE TE BLD COUNT W/DIF F mean RBC HGB concentratio n 32.1 g/dL 31.0-3 6.0 Not Available [facility] (Lab) [address] [place], [address], 03/05/2022 19:47:50 03/05/1903/05/2022 CBC/C OMPLE TE BLD COUNT W/DIF F red cell distribution width 13.2 % 11.8-1 5.5 Not Available [facility] (Lab) [address] [place], [address], 03/05/2022 19:47:50 03/05/1903/05/2022 CBC/C OMPLE TE BLD COUNT W/DIF F platelets 195 x10'3 /uL 150-40 0 Not Available [facility] (Lab) [address] [place], [address], 03/05/2022 19:47:50 03/05/1903/05/2022 CBC/C OMPLE TE BLD COUNT W/DIF F mean platelet volume 10.5 fL 9.0-12 .4 Not Available [facility] (Lab) [address] [place], [address], 03/05/2022 19:47:50 03/05/1903/05/2022 CBC/C OMPLE TE BLD COUNT W/DIF F neutrophils 74.2 % 39.0-7 2.0 high Not Available [facility] (Lab) [address] [place], [address], 03/05/2022 19:47:50 03/05/1903/05/2022 CBC/C OMPLE TE BLD COUNT W/DIF F lymphocytes 17.7 % 16.0-4 7.0 Not Available [facility] (Lab) [address] [place], [address], 03/05/2022 19:47:50 03/05/1903/05/2022 CBC/C OMPLE TE BLD COUNT W/DIF F monocytes 5.0 % 5.0-12 .0 Not Available [facility] (Lab) [address] [place], [address], 03/05/2022 19:47:50 03/05/1903/05/2022 CBC/C OMPLE TE BLD COUNT W/DIF F eosinophils 1.9 % 1.0-7. 0 Not Available [facility] (Lab) [address] [place], [address], 03/05/2022 19:47:50 03/05/1903/05/2022 CBC/C OMPLE TE BLD COUNT W/DIF F basophils 0.8 % 0.0-2. 0 Not Available [facility] (Lab) [address] [place], [address], 03/05/2022 19:47:50 03/05/1903/05/2022 CBC/C OMPLE TE BLD COUNT W/DIF F immature granulocytes 0.4 % 0.00-0 .50 Not Available [facility] (Lab) [address] [place], [address], 03/05/2022 19:47:50 03/05/1903/05/2022 CBC/C OMPLE TE BLD COUNT W/DIF F neutrophils, absolute count 5.50 x10'3 /uL 1.5-8. 0 Not Available [facility] (Lab) [address] [place], [address], 03/05/2022 19:47:50 03/05/1903/05/2022 CBC/C OMPLE TE BLD COUNT W/DIF F lymphocytes, absolute count 1.31 x10'3 /uL 1.07-3 .43 Not Available [facility] (Lab) [address] [place], [address], 03/05/2022 19:47:50 03/05/1903/05/2022 CBC/C OMPLE TE BLD COUNT W/DIF F monocytes, absolute count 0.37 x10'3 /uL 0.29-0 .99 Not Available [facility] (Lab) [address] [place], [address], 03/05/2022 19:47:50 03/05/1903/05/2022 CBC/C OMPLE TE BLD COUNT W/DIF F eosinophils, absolute count 0.14 x10'3 /uL 0.02-0 .53 Not Available [facility] (Lab) [address] [place], [address], 03/05/2022 19:47:50 03/05/1903/05/2022 CBC/C OMPLE TE BLD COUNT W/DIF F basophils, absolute count 0.06 x10'3 /uL 0.01-0 .08 Not Available [facility] (Lab) [address] [place], [address], 03/05/2022 19:47:50 03/05/1903/05/2022 CBC/C OMPLE TE BLD COUNT W/DIF F immature granulocytes ,absolute 0.03 x10'3 /uL 0.00-0 .05 Not Available [facility] (Lab) [address] [place], [address], 03/05/2022 19:47:50 03/05/1903/05/2022 CBC/C OMPLE TE BLD COUNT W/DIF F nucleated red blood cells 0.0 % -0 Not Available [facility] (Lab) [address] [place], [address], 03/05/2022 19:47:50 03/05/1903/05/2022 CBC/C OMPLE TE BLD COUNT W/DIF F NRBC# 0.00 x10'3 /uL Not Available [facility] (Lab) [address] [place], [address], 03/05/2022 19:47:50 09/04/1909/03/2022 URINA LYSIS COMPL ETE/I RIS W/RFX color LIGHT- YELLOW Not Available [facility] (Lab) [address] [place], [address], 09/03/2022 20:11:36 09/04/19 23 09/03/2022 URINA LYSIS COMPL ETE/I RIS W/RFX appear CLEAR Not Available [facility] (Lab) [address] [place], [address], 09/03/2022 20:11:36 09/04/19 23 09/03/2022 URINA LYSIS COMPL ETE/I RIS W/RFX specific gravity 1.005 1.001- 1.030 Not Available [facility] (Lab) [address] [place], [address], 09/03/2022 20:11:36 09/04/19 23 09/03/2022 URINA LYSIS COMPL ETE/I RIS W/RFX pH 7.0 pH_un its 5.0-9. 0 Not Available [facility] (Lab) [address] [place], [address], 09/03/2022 20:11:36 09/04/19 23 09/03/2022 URINA LYSIS COMPL ETE/I RIS W/RFX leukocytes NEGATI VE solange/u L negati ve- Not Available [facility] (Lab) [address] [place], [address], 09/03/2022 20:11:36 09/04/19 23 09/03/2022 URINA LYSIS COMPL ETE/I RIS W/RFX nitrite NEGATI VE negati ve- Not Available [facility] (Lab) [address] [place], [address], 09/03/2022 20:11:36 09/04/19 23 09/03/2022 URINA LYSIS COMPL ETE/I RIS W/RFX protein NEGATI VE mg/dL negati ve- Not Available [facility] (Lab) [address] [place], [address], 09/03/2022 20:11:36 09/04/19 23 09/03/2022 URINA LYSIS COMPL ETE/I RIS W/RFX glucose NORMAL mg/dL normal - Not Available [facility] (Lab) [address] [place], [address], 09/03/2022 20:11:36 09/04/19 23 09/03/2022 URINA LYSIS COMPL ETE/I RIS W/RFX ketones NEGATI VE mg/dL negati ve- Not Available [facility] (Lab) [address] [place], [address], 09/03/2022 20:11:36 09/04/19 23 09/03/2022 URINA LYSIS COMPL ETE/I RIS W/RFX urobilinogen NORMAL mg/dL normal - Not Available [facility] (Lab) [address] [place], [address], 09/03/2022 20:11:36 09/04/19 23 09/03/2022 URINA LYSIS COMPL ETE/I RIS W/RFX bilirubin NEGATI VE mg/dL negati ve- Not Available [facility] (Lab) [address] [place], [address], 09/03/2022 20:11:36 09/04/19 23 09/03/2022 URINA LYSIS COMPL ETE/I RIS W/RFX blood NEGATI VE mg/dL negati ve- Not Available [facility] (Lab) [address] [place], [address], 09/03/2022 20:11:36 09/04/19 23 09/03/2022 URINA LYSIS COMPL ETE/I RIS W/RFX white blood cells 0-8 /i??h pfi?? 0-8 Not Available [facility] (Lab) [address] [place], [address], 09/03/2022 20:11:36 09/04/19 23 09/03/2022 URINA LYSIS COMPL ETE/I RIS W/RFX red blood cells 0-4 /i??h pfi?? 0-4 Not Available [facility] (Lab) [address] [place], [address], 09/03/2022 20:11:36 09/04/19 23 09/03/2022 URINA LYSIS COMPL ETE/I RIS W/RFX bacteria OCCASI ONAL abnormal Not Available [facility] (Lab) [address] [place], [address], 09/03/2022 20:11:36 09/04/19 23 09/03/2022 URINA LYSIS COMPL ETE/I RIS W/RFX mucous OCCASI ONAL /i??l pfi?? abnormal Not Available [facility] (Lab) [address] [place], [address], 09/03/2022 20:11:36 09/04/19 23 09/03/2022 URINA LYSIS COMPL ETE/I RIS W/RFX squamous epithelial FEW /i??l pfi?? abnormal Not Available [facility] (Lab) [address] [place], [address], 09/03/2022 20:11:36 04/30/19 24 04/30/2023 CBC/C OMPLE TE BLD COUNT W/DIF F white blood cells 8.3 x10'3 /uL 4.2-10 .8 Not Available [facility] (Lab) [address] [place], [address], 04/30/2023 14:47:38 04/30/19 24 04/30/2023 CBC/C OMPLE TE BLD COUNT W/DIF F red blood cells 4.93 x10'6 /uL 3.80-5 .20 Not Available [facility] (Lab) [address] [place], [address], 04/30/2023 14:47:38 04/30/19 24 04/30/2023 CBC/C OMPLE TE BLD COUNT W/DIF F hemoglobin 15.4 g/dL 12.0-1 5.6 Not Available [facility] (Lab) [address] [place], [address], 04/30/2023 14:47:38 04/30/19 24 04/30/2023 CBC/C OMPLE TE BLD COUNT W/DIF F hematocrit 46.5 % 35.7-4 5.7 high Not Available [facility] (Lab) [address] [place], [address], 04/30/2023 14:47:38 04/30/19 24 04/30/2023 CBC/C OMPLE TE BLD COUNT W/DIF F mean red cell volume 94.3 fL 82.0-9 9.0 Not Available [facility] (Lab) [address] [place], [address], 04/30/2023 14:47:38 04/30/19 24 04/30/2023 CBC/C OMPLE TE BLD COUNT W/DIF F mean red cell hemoglobin 31.2 pg 27.0-3 3.0 Not Available [facility] (Lab) [address] [place], [address], 04/30/2023 14:47:38 04/30/19 24 04/30/2023 CBC/C OMPLE TE BLD COUNT W/DIF F mean RBC HGB concentratio n 33.1 g/dL 31.0-3 6.0 Not Available [facility] (Lab) [address] [place], [address], 04/30/2023 14:47:38 04/30/19 24 04/30/2023 CBC/C OMPLE TE BLD COUNT W/DIF F red cell distribution width 13.2 % 11.8-1 5.5 Not Available [facility] (Lab) [address] [place], [address], 04/30/2023 14:47:38 04/30/19 24 04/30/2023 CBC/C OMPLE TE BLD COUNT W/DIF F platelets 169 x10'3 /uL 150-40 0 Not Available [facility] (Lab) [address] [place], [address], 04/30/2023 14:47:38 04/30/19 24 04/30/2023 CBC/C OMPLE TE BLD COUNT W/DIF F mean platelet volume 11.5 fL 9.0-12 .4 Not Available [facility] (Lab) [address] [place], [address], 04/30/2023 14:47:38 04/30/19 24 04/30/2023 CBC/C OMPLE TE BLD COUNT W/DIF F neutrophils 71.9 % 39.0-7 2.0 Not Available [facility] (Lab) [address] [place], [address], 04/30/2023 14:47:38 04/30/19 24 04/30/2023 CBC/C OMPLE TE BLD COUNT W/DIF F lymphocytes 20.0 % 16.0-4 7.0 Not Available [facility] (Lab) [address] [place], [address], 04/30/2023 14:47:38 04/30/19 24 04/30/2023 CBC/C OMPLE TE BLD COUNT W/DIF F monocytes 5.2 % 5.0-12 .0 Not Available [facility] (Lab) [address] [place], [address], 04/30/2023 14:47:38 04/30/19 24 04/30/2023 CBC/C OMPLE TE BLD COUNT W/DIF F eosinophils 1.7 % 1.0-7. 0 Not Available [facility] (Lab) [address] [place], [address], 04/30/2023 14:47:38 04/30/19 24 04/30/2023 CBC/C OMPLE TE BLD COUNT W/DIF F basophils 0.8 % 0.0-2. 0 Not Available [facility] (Lab) [address] [place], [address], 04/30/2023 14:47:38 04/30/19 24 04/30/2023 CBC/C OMPLE TE BLD COUNT W/DIF F immature granulocytes 0.4 % 0.00-0 .50 Not Available [facility] (Lab) [address] [place], [address], 04/30/2023 14:47:38 04/30/19 24 04/30/2023 CBC/C OMPLE TE BLD COUNT W/DIF F neutrophils, absolute count 5.93 x10'3 /uL 1.5-8. 0 Not Available [facility] (Lab) [address] [place], [address], 04/30/2023 14:47:38 04/30/19 24 04/30/2023 CBC/C OMPLE TE BLD COUNT W/DIF F lymphocytes, absolute count 1.65 x10'3 /uL 1.07-3 .43 Not Available [facility] (Lab) [address] [place], [address], 04/30/2023 14:47:38 04/30/19 24 04/30/2023 CBC/C OMPLE TE BLD COUNT W/DIF F monocytes, absolute count 0.43 x10'3 /uL 0.29-0 .99 Not Available [facility] (Lab) [address] [place], [address], 04/30/2023 14:47:38 04/30/19 24 04/30/2023 CBC/C OMPLE TE BLD COUNT W/DIF F eosinophils, absolute count 0.14 x10'3 /uL 0.02-0 .53 Not Available [facility] (Lab) [address] [place], [address], 04/30/2023 14:47:38 04/30/19 24 04/30/2023 CBC/C OMPLE TE BLD COUNT W/DIF F basophils, absolute count 0.07 x10'3 /uL 0.01-0 .08 Not Available [facility] (Lab) [address] [place], [address], 04/30/2023 14:47:38 04/30/19 24 04/30/2023 CBC/C OMPLE TE BLD COUNT W/DIF F immature granulocytes ,absolute 0.03 x10'3 /uL 0.00-0 .05 Not Available [facility] (Lab) [address] [place], [address], 04/30/2023 14:47:38 04/30/19 24 04/30/2023 CBC/C OMPLE TE BLD COUNT W/DIF F nucleated red blood cells 0.0 % -0 Not Available [facility] (Lab) [address] [place], [address], 04/30/2023 14:47:38 04/30/19 24 04/30/2023 CBC/C OMPLE TE BLD COUNT W/DIF F NRBC# 0.00 x10'3 /uL Not Available [facility] (Lab) [address] [place], [address], 04/30/2023 14:47:38 04/30/19 24 04/30/2023 BASIC METAB OLIC PANEL sodium 139 mmol/ L 137-14 5 Not Available [facility] (Lab) [address] [place], [address], 04/30/2023 17:13:14 04/30/19 24 04/30/2023 BASIC METAB OLIC PANEL potassium 4.3 mmol/ L 3.5-5. 1 Not Available [facility] (Lab) [address] [place], [address], 04/30/2023 17:13:14 04/30/19 24 04/30/2023 BASIC METAB OLIC PANEL chloride 103 mmol/ L 98-107 Not Available [facility] (Lab) [address] [place], [address], 04/30/2023 17:13:14 04/30/19 24 04/30/2023 BASIC METAB OLIC PANEL carbon dioxide 32 mmol/ L 22-30 high Not Available [facility] (Lab) [address] [place], [address], 04/30/2023 17:13:14 04/30/19 24 04/30/2023 BASIC METAB OLIC PANEL anion gap 8.3 mmol/ L 14-22 low Not Available [facility] (Lab) [address] [place], [address], 04/30/2023 17:13:14 04/30/19 24 04/30/2023 BASIC METAB OLIC PANEL glucose 92 mg/dL 70-99 Not Available [facility] (Lab) [address] [place], [address], 04/30/2023 17:13:14 04/30/19 24 04/30/2023 BASIC METAB OLIC PANEL BUN 16 mg/dL 8-19 Not Available [facility] (Lab) [address] [place], [address], 04/30/2023 17:13:14 04/30/19 24 04/30/2023 BASIC METAB OLIC PANEL creatinine 0.70 mg/dL 0.66-1 .25 Not Available [facility] (Lab) [address] [place], [address], 04/30/2023 17:13:14 04/30/19 24 04/30/2023 BASIC METAB OLIC PANEL GFR >60 Refer ence Range : [place] GFR Healt hy Adult : >60 mL/mi n/1.7 3 m2 Chron ic Kidne y Disea se: 15-60 mL/mi n/1.7 3 m2 Kidne y Failu re: <15/m L/min /1.73 m2 www.n iddk. nih.g ov The MDRD study equat ion has not been valid ated in child abigail <18 years of age; pregn ant women ; the elder ly >85 years of age; or in some racia l or ethni c subgr oups, such as Hispa nics. Outsi de the valid ated grant eters , estim ated GFR is less accur ate, requi ring clini jakob judgm ent on a case- by-ca se basis . Clini jakob inter preta tion for other races and ages must be made by the clini mayela. The MDRD study equat ion has not been valid ated for the evalu ation of serum creat inine relat ed to nutri omaira l statu s or medic ation usage . For perso ns <18 years of age, a pedia tric GFR calcu lator is avail able on the [facility] websi te: https ://hemalatha w.kid conner.o rg/pr ofess ional s/kdo qi/gf r_cal culat or Not Available [facility] (Lab) [address] [place], [address], 04/30/2023 17:13:14 04/30/19 24 04/30/2023 BASIC METAB OLIC PANEL calcium 9.5 mg/dL 8.4-10 .2 Not Available [facility] (Lab) [address] [place], [address], 04/30/2023 17:13:14 04/30/19 24 04/30/2023 TSH thyroid-stim ulating hormone 2.630 uIU/m L 0.465- 4.680 Not Available [facility] (Lab) [address] [place], [address], 04/30/2023 17:25:13 04/30/19 24 04/30/2023 VITAM IN D 25-HY DROXY vd25oh 42.1 NG/mL 30-100 Vitam in D Statu s: Defic ient: <20 ng/mL Insuf ficie nt: 20-29 ng/mL Suffi cient : 30-10 0 ng/mL Not Available [facility] (Lab) [address] [place], [address], 04/30/2023 17:36:59 06/24/19 24 06/24/2023 URINA LYSIS COMPL ETE/I RIS W/RFX color LIGHT- YELLOW Not Available [facility] (Lab) [address] [place], [address], 06/24/2023 19:31:31 06/24/19 24 06/24/2023 URINA LYSIS COMPL ETE/I RIS W/RFX appear TURBID abnormal Not Available [facility] (Lab) [address] [place], [address], 06/24/2023 19:31:31 06/24/19 24 06/24/2023 URINA LYSIS COMPL ETE/I RIS W/RFX specific gravity 1.009 1.001- 1.030 Not Available [facility] (Lab) [address] [place], [address], 06/24/2023 19:31:31 06/24/19 24 06/24/2023 URINA LYSIS COMPL ETE/I RIS W/RFX pH 7.0 pH_un its 5.0-9. 0 Not Available [facility] (Lab) [address] [place], [address], 06/24/2023 19:31:31 06/24/19 24 06/24/2023 URINA LYSIS COMPL ETE/I RIS W/RFX leukocytes NEGATI VE solange/u L negati ve- Not Available [facility] (Lab) [address] [place], [address], 06/24/2023 19:31:31 06/24/19 24 06/24/2023 URINA LYSIS COMPL ETE/I RIS W/RFX nitrite NEGATI VE negati ve- Not Available [facility] (Lab) [address] [place], [address], 06/24/2023 19:31:31 06/24/19 24 06/24/2023 URINA LYSIS COMPL ETE/I RIS W/RFX protein NEGATI VE mg/dL negati ve- Not Available [facility] (Lab) [address] [place], [address], 06/24/2023 19:31:31 06/24/19 24 06/24/2023 URINA LYSIS COMPL ETE/I RIS W/RFX glucose NORMAL mg/dL normal - Not Available [facility] (Lab) [address] [place], [address], 06/24/2023 19:31:31 06/24/19 24 06/24/2023 URINA LYSIS COMPL ETE/I RIS W/RFX ketones NEGATI VE mg/dL negati ve- Not Available [facility] (Lab) [address] [place], [address], 06/24/2023 19:31:31 06/24/19 24 06/24/2023 URINA LYSIS COMPL ETE/I RIS W/RFX urobilinogen NORMAL mg/dL normal - Not Available [facility] (Lab) [address] [place], [address], 06/24/2023 19:31:31 06/24/19 24 06/24/2023 URINA LYSIS COMPL ETE/I RIS W/RFX bilirubin NEGATI VE mg/dL negati ve- Not Available [facility] (Lab) [address] [place], [address], 06/24/2023 19:31:31 06/24/19 24 06/24/2023 URINA LYSIS COMPL ETE/I RIS W/RFX blood NEGATI VE mg/dL negati ve- Not Available [facility] (Lab) [address] [place], [address], 06/24/2023 19:31:31 06/24/19 24 06/24/2023 URINA LYSIS COMPL ETE/I RIS W/RFX white blood cells 0-8 /i??h pfi?? 0-8 Not Available [facility] (Lab) [address] [place], [address], 06/24/2023 19:31:31 06/24/19 24 06/24/2023 URINA LYSIS COMPL ETE/I RIS W/RFX red blood cells 0-4 /i??h pfi?? 0-4 Not Available [facility] (Lab) [address] [place], [address], 06/24/2023 19:31:31 06/24/19 24 06/24/2023 URINA LYSIS COMPL ETE/I RIS W/RFX bacteria NONE Not Available [facility] (Lab) [address] [place], [address], 06/24/2023 19:31:31 06/24/19 24 06/24/2023 URINA LYSIS COMPL ETE/I RIS W/RFX squamous epithelial PACKED FIELD /i??l pfi?? abnormal Not Available [facility] (Lab) [address] [place], [address], 06/24/2023 19:31:31 06/24/19 24 06/24/2023 URINA LYSIS COMPL ETE/I RIS W/RFX tranistional epithelial OCCASI ONAL /i??l pfi?? abnormal Not Available [facility] (Lab) [address] [place], [address], 06/24/2023 19:31:31 06/24/19 24 06/24/2023 urina lysis , dipst ick Leukocytes (reference range: negative solange/ l) Negati ve Not Available [address], [place], [address], 06/24/2023 14:44:14 06/24/19 24 06/24/2023 urina lysis , dipst ick Nitrite (reference rage: negative mg/dl) negati ve Not Available [address], [place], [address], 06/24/2023 14:44:14 06/24/1906/24/2023 urina lysis , dipst ick Urobilinogen (reference range: 0.2-1 mg/dl) 0.2 Not Available [address], [place], [address], 06/24/2023 14:44:14 06/24/19 24 06/24/2023 urina lysis , dipst ick Protein (reference range: negative mg/dl) Negati ve Not Available [address], [place], [address], 06/24/2023 14:44:14 06/24/1906/24/2023 urina lysis , dipst ick pH (reference range: 5-7) 7.0 Not Available [address], [place], [address], 06/24/2023 14:44:14 06/24/19 24 06/24/2023 urina lysis , dipst ick Blood (reference range: negative Tam/ l) Non-He molyze d: Trace Not Available [address], [place], [address], 06/24/2023 14:44:14 06/24/19 24 06/24/2023 urina lysis , dipst ick Specific [place] (reference range: 1.005-1.030) 1.015 Not Available [address], [place], [address], 06/24/2023 14:44:14 06/24/1906/24/2023 urina lysis , dipst ick Ketone (reference range: negative mg/dl) Negati ve Not Available [address], [place], [address], 06/24/2023 14:44:14 06/24/1906/24/2023 urina lysis , dipst ick Bilirubin (reference range: negative mg/dl) Negati ve Not Available [address], [place], [address], 06/24/2023 14:44:14 06/24/1906/24/2023 urina lysis , dipst ick Glucose (reference range: negative mg/dl) Negati ve Not Available [address], [place], [address], 06/24/2023 14:44:14 06/24/1906/24/2023 urina lysis , dipst ick Appearance Clear Not Available [address], [place], [address], 06/24/2023 14:44:14 06/24/1906/24/2023 urina lysis , dipst ick Color Yellow Not Available [address], [place], [address], 06/24/2023 14:44:14 Result Notes None recorded. Problems Name Problem SNOMED Code Status Onset Date Resolution Date Notes Provider Name and Address Organization Details Recorded Time Tobacco user 784376593 Active Not Available [facility] 08:49:50 Insomnia 369995302 Active Not Available [facility] 3 08:49:50 Recurren t urinary tract infectio n 646963903 Active 2020 Not Available [facility] 3 08:49:50 Abdomina l pain 13969929 Active Not Available [facility] 3 08:49:50 Abdomina l aortic aneurysm 322654503 Active 2016 Infraren al 3.2 cm 2019 Not Available [facility] 3 08:49:50 Carmen e 426646750 Active Not Available [facility] 3 08:49:51 Mitral valve annular calcific ation 307526296 Active 2020 Not Available [facility] 3 08:49:51 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 pylori + on biopsy Not Available [facility] 3 08:49:51 Herpes zoster 7371284 Active Not Available [facility] 3 08:49:51 Dysuria 24408412 Active Not Available [facility] 3 08:49:52 Cough 90066702 Active Not Available [facility] 3 08:49:52 Upper respirat ory infectio n 61980031 Active Not Available [facility] 3 08:49:52 Hyperlip idemia 46690485 Active Not Available [facility] 3 08:49:52 [facility] hyperten kay 74136191 Active 2020 Not Available [facility] 3 08:49:52 Otitis media 65673473 Active Not Available [facility] 3 08:49:52 Polyp of colon 54568329 Active repeat colonosc opy 2019 Not Available [facility] 3 08:49:52 Urinary tract infectio us disease 94270901 Completed Not Available [facility] 3 08:49:52 Tobacco dependen ce syndrome 88063258 Active Not Available [facility] 3 08:49:53 Conjunct ivitis 1308535 Active 2022 FRANCISCO Leggett [address], [place], [address] , [employer] [facility] 3 10:23:47 Acute conjunct ivitis 19501950 Active 2022 FRANCISCO Leggett [address], [address], [place], [address] , [employer] [facility] 3 10:24:46 Persiste nt cough 649854512 Active 2022 FRANCISCO Leggett [address], [address], [place], [address] , [employer] [facility] 3 10:24:54 Acute conjunct ivitis of left eye 12743222063 9105 Active 2022 FRANCISCO Leggett [address], [address], [place], [address] , [employer] [facility] 3 13:09:17 Problem Notes None recorded. Medical Equipment None Reported. Allergies Allergen ID Allergen Name Allergen Category Reaction Reaction Severity Criticality Documentation Date Start Date Code Code System Note Provider Name and Address Organization Details Recorded Time 61929 nitrofura ntoin medicatio n dizziness severe Not available 04/11/20222019 7454 RxNorm Not Available [facility] 3 08:54:14 Medications Name Sig Start Date Stop Date Status Note LastModified by Organization Details LastModified Time amoxicillin 500 mg capsule Take 1 capsule every 12 hours by oral route for 10 days. 04/11 completed Not Available Not Available Not Available methocarbam ol 500 mg tablet TAKE 1 TABLET BY MOUTH THREE TIMES DAILY FOR 11 DOSES active Not Available Not Available No t Available nicotine 14 mg/24 hr daily transdermal patch APPLY ONE PATCH TOPICALLY ONCE DAILY FOR 28 DAYS 02/19 completed Not Available Not Available Not Available azithromyci n 250 mg tablet TAKE 2 TABLETS (500 MG) BY ORAL ROUTE ONCE DAILY FOR 1 DAY THEN 1 TABLET (250 MG) BY ORAL ROUTE ONCE DAILY FOR 4 DAYS active Not Available Not Available No t Available ofloxacin 0.3 % eye drops INSTILL 1 DROP INTO AFFECTED EYE(S) 4 TIMES DAILY 09/03 completed Not Available Not Available Not Available fluconazole 150 mg tablet 1 po qday x 3 days active Not Available Not Available No t Available benzonatate 200 mg capsule Take 1 capsule 3 times a day by oral route as needed for 10 days. 06/23 completed Not Available Not Available Not Available cephalexin 250 mg capsule TAKE 1 CAPSULE BY MOUTH ONCE DAILY active Not Available Not Available No t Available hydrocodone 5 mg-acetamin ophen 325 mg tablet TAKE 1 TABLET BY MOUTH EVERY 6 HOURS NEEDED FOR PAIN 04/28 completed Not Available Not Available Not Available Medrol (Willian) 4 mg tablets in a dose pack Take 6 tabs on day one, 5 tabs on day two, 4 tabs on day three, 3 tabs on day four, 2 tabs on day five, 1 tab on day six. active Not Available Not Available No t Available prednisone 20 mg tablet TAKE 2 TABLETS BY MOUTH ONCE DAILY FOR 5 DAYS 09/03 completed Not Available Not Available Not Available metronidazo le 500 mg tablet TAKE 1 TABLET BY MOUTH TWICE DAILY active Not Available Not Available No t Available acetaminoph en 300 mg-codeine 30 mg tablet TAKE 1 TO 2 TABLETS BY MOUTH EVERY 4 HOURS NEEDED FOR PAIN 04/28 completed Not Available Not Available Not Available ciprofloxac in 250 mg tablet TAKE 1 TABLET BY MOUTH EVERY 12 HOURS FOR 7 DAYS active Not Available Not Available No t Available ciprofloxac in 500 mg tablet Take 1 tablet every 12 hours by oral route for 7 days. 03/05 completed Not Available Not Available Not Available sulfamethox azole 800 mg-trimetho prim 160 mg tablet TAKE 1 TABLET BY MOUTH EVERY 12 HOURS FOR 7 DAYS active Not Available Not Available No t Available aspirin 81 mg tablet,eloisa yed release Take 1 tablet every day by oral route. 2018 active Not Available Not Available Not Avai lable triamcinolo ne acetonide 0.1 % topical cream APPLY A THIN LAYER TO THE AFFECTED AREA(S) BY TOPICAL ROUTE 2 TIMES PER DAY prn rash 12/11 completed Not Available Not Available Not Available amoxicillin 875 mg tablet Take 1 tablet every 12 hours by oral route for 7 days. active Not Available Not Available No t Available lorazepam 0.5 mg tablet 1/2 to 1 tab po bid prn anxiety 06/23 completed Not Available Not Available Not Available benzonatate 100 mg capsule Take 1 capsule 3 times a day by oral route for 5 days. active Not Available Not Available No t Available triamcinolo ne acetonide 40 mg/mL suspension for injection 1 ml IM x 1 08/17 completed Not Available Not Available Not Available cephalexin 500 mg capsule TAKE 1 CAPSULE BY MOUTH TWICE DAILY FOR 10 DAYS 12/11 completed Not Available Not Available Not Available naproxen sodium 550 mg tablet Take 1 tablet every 12 hours by oral route as needed. 04/27 completed Not Available Not Available Not Available nitrofurant oin macrocrysta l 100 mg capsule Take 1 capsule twice a day by oral route for 7 days. 12/10 completed Not Available Not Available Not Available triamcinolo ne acetonide 0.1 % topical ointment APPLY THIN LAYER TOPICALLY TO AFFECTED AREA TWICE DAILY FOR 7 DAYS NEEDED FOR HIVES active Not Available Not Available No t Available nystatin 100,000 unit/gram topical cream APPLY TO THE AFFECTED AREA(S) BY TOPICAL ROUTE 2 TIMES PER DAY prn rash active Not Available Not Available No t Available polymyxin B sulfate 10,000 unit-trimet hoprim 1 mg/mL eye drops INSTILL 1 DROP INTO AFFECTED EYE(S) BY OPHTHALMI C ROUTE EVERY 6 HOURS 09/03 completed Not Available Not Available Not Available nicotine 21 mg/24 hr daily transdermal patch Apply 1 patch every day by transderm al route for 42 days. 04/27 completed Not Available Not Available Not Available diclofenac sodium 75 mg tablet,eloisa yed release Take 1 tablet twice a day by oral route as needed for 30 days. active Not Available Not Available No t Available hydroxyzine HCl 25 mg tablet TAKE 1 TABLET BY MOUTH THREE TIMES DAILY NEEDED FOR 30 DAYS 08/17 completed Not Available Not Available Not Available hydrochloro thiazide 25 mg tablet 1/2 po qday MK 07/26 completed Not Available Not Available Not Available gabapentin 100 mg capsule TAKE 1 CAPSULE BY MOUTH THREE TIMES DAILY FOR 11 DOSES active Not Available Not Available No t Available ergocalcife rol (vitamin D2) 1,250 mcg (50,000 unit) capsule Take 1 capsule every week by oral route. 12/11 completed Not Available Not Available Not Available levofloxaci n 500 mg tablet active Not Available Not Available Not Available zolpidem 10 mg tablet 1/2 to 1 tab po qhs prn insomnia 10/28 completed Not Available Not Available Not Available fluticasone propionate 50 mcg/actuati on nasal spray,suspe nsion USE 2 SPRAY(S) IN EACH NOSTRIL ONCE DAILY active Not Available Not Available No t Available doxycycline hyclate 100 mg tablet TAKE 1 TABLET BY MOUTH TWICE DAILY FOR 7 DAYS 09/03 completed Not Available Not Available Not Available amoxicillin 875 mg-potassiu m clavulanate 125 mg tablet active Not Available Not Available Not Available nicotine 7 mg/24 hr daily transdermal patch Apply 1 patch every day by transderm al route for 14 days. 04/27 completed Not Available Not Available Not Available Ventolin HFA 90 mcg/actuati on aerosol inhaler INHALE 2 PUFFS BY MOUTH EVERY 6 HOURS NEEDED FOR WHEEZING active Not Available Not Available No t Available hydroxyzine pamoate 25 mg capsule Take 1 capsule 3 times a day by oral route as needed for 30 days. 12/11 completed Not Available Not Available Not Available neomycin-po lymyxin-hyd rocort 3.5 mg-10,000 unit/mL-1 % ear drops,susp INSTILL 4 DROPS INTO AFFECTED EAR(S) BY OTIC ROUTE 3 TIMES PER DAY x 7 days 11/01 completed Not Available Not Available Not Available nitrofurant oin monohydrate /macrocryst als 100 mg capsule TAKE 1 CAPSULE BY MOUTH EVERY 12 HOURS FOR 14 DAYS active Not Available Not Available No t Available hydrochloro thiazide 12.5 mg tablet TAKE 1 TABLET BY MOUTH ONCE DAILY active Not Available Not Available No t Available Fish Oil 1,000 mg capsule 10/30 completed Not Available Not Available Not Available GaviLyte-G 236 gram-22.74 gram-6.74 gram-5.86 gram oral solution USE DIRECTED active Not Available Not Available No t Available Dexilant 60 mg capsule, delayed release Take 1 capsule every day by oral route for 56 days. 02/17 completed Not Available Not Available Not Available doxepin 3 mg tablet Take 1 tablet every day by oral route at bedtime. active Not Available Not Available No t Available Xarelto 15 mg tablet 1 po qday 08/17 completed Not Available Not Available Not Available Xarelto 20 mg tablet TAKE 1 TABLET BY MOUTH ONCE DAILY AT BEDTIME active Not Available Not Available No t Available Fluzone High-Dose Quad (PF) 240 mcg/0.7 mL IM syringe PHARMACIS T ADMINISTE RED IMMUNIZAT ION ADMINISTE RED AT TIME OF DISPENSIN G active Not Available Not Available No t Available Vitals Date Recorded Body mass index (BMI) Body height Oxygen saturation Oxygen saturation in Arterial blood by Pulse oximetry Heart rate Body temperature Body weight Systolic blood pressure Diastolic blood pressure Provider Name and Address Organization Details Last Updated DateTime 3 29.9 kg/m2 156.21 cm 97 % 97 % 100 /min 97.2 [degF] 23623.3 7 g 124 mm[Hg] 78 mm[Hg] Not Available [facility] 3 08:46:06 Date Recorded Body height Body mass index (BMI) Body weight Body temperature Heart rate Oxygen saturation Oxygen saturation in Arterial blood by Pulse oximetry Systolic blood pressure Diastolic blood pressure Provider Name and Address Organization Details Last Updated DateTime 3 156.21 cm 31.6 kg/m2 55882.7 g 97.4 [degF] 107 /min 97 % 97 % 125 mm[Hg] 80 mm[Hg] Erum Burroughs MA [facility] [employer] 3 10:11:24 Date Recorded Body height Body mass index (BMI) Body weight Body temperature Heart rate Oxygen saturation Oxygen saturation in Arterial blood by Pulse oximetry Systolic blood pressure Diastolic blood pressure Provider Name and Address Organization Details Last Updated DateTime 3 156.21 cm 31 kg/m2 23358.9 3 g 97.4 [degF] 109 /min 95 % 95 % 124 mm[Hg] 82 mm[Hg] Rene Smith RN [facility] [employer] 3 10:45:34 Date Recorded Body height Body mass index (BMI) Body weight Body temperature Heart rate Oxygen saturation Oxygen saturation in Arterial blood by Pulse oximetry Systolic blood pressure Diastolic blood pressure Provider Name and Address Organization Details Last Updated DateTime 4 156.21 cm 29.6 kg/m2 60905.1 9 g 97.2 [degF] 102 /min 94 % 94 % 138 mm[Hg] 86 mm[Hg] Rene Smith RN [place] [facility] 4 12:16:53 Date Recorded Body height Provider Name an d Address Organization Details Last Updated DateTime 06/24/2023 156.21 cm Shonna Leija RN [facility] [employer] 06/24/2023 15:13:06 Social History Question Answer Notes LastModified by Organizat ion Details LastModified Time Tobacco Smoking Status Current Every Day Smoker 10 cig a day Not Available [facility] 04/11/2022 08:44:56 Do You Have An Advance Directive? No [id number] Information not available 04/11/2022 What Is Your Level Of Alcohol Consumption? None MIGRATION.46610 [id number] Information not available 04/11/2022 Are You Blind Or Do You Have Difficulty Seeing? No MIGRATION.44915 13710 Information not available 04/11/2022 What Is Your Level Of Caffeine Consumption? Occasional MIGRATION.[id number] [id number] Information not available 04/11/2022 In The 14 Days Before Symptom Onset, Have You Had Close Contact With A Laboratory-confir med COVID-19 While That Case Was Ill? No MIGRATION.02174 [id number] Information not available 04/11/2022 In The 14 Days Before Symptom Onset, Have You Had Close Contact With A Person Who Is Under Investigation For COVID-19 While That Person Was Ill? No MIGRATION.21832 [id number] Information not available 04/11/2022 Are You Deaf Or Do You Have Serious Difficulty Hearing? No MIGRATION.90912 08344 Information not available 04/11/2022 What Type Of Diet Are You Following? REGULAR MIGRATION.70813 53153 Information not available 04/11/2022 Do You Have A Medical Power Of Insulation Installer? No MIGRATION.60050 03803 Information not available 04/11/2022 What Was The Date Of Your Most Recent Tobacco Screening? 03/05/2022 MIGRATION.92172 [id number] Information not available 04/11/2022 Do You Use Your Seat Belt Or Car Seat Routinely? Yes MIGRATION.42281 80968 Information not available 04/11/2022 Do You Use Any Illicit Or Recreational Drugs? No MIGRATION.70346 61550 Information not available 04/11/2022 Have You Recently Traveled Abroad? No MIGRATION.68844 21304 Information not available 04/11/2022 Are You Currently In School? No MIGRATION.82222 40739 Information not available 04/11/2022 Do You Have Any Dietary Restrictions? No MIGRATION.93771 96419 Information not available 04/11/2022 Do You Or Have You Ever Used Any Other Forms Of Tobacco Or Nicotine? No MIGRATION.56451 17150 Information not available 04/11/2022 Sex: Unknown Functional Status Question Answer Note LastModified by Organizat ion Details LastModified Time Do you have difficulty walking or climbing stairs? No MIGRATION.[id number] 026 Information not available 04/11/2022 Do you have transportation difficulties? No MIGRATION.[id number] 026 Information not available 04/11/2022 Are you able to walk? YESWOREST MIGRATION.[id number] 026 Information not available 04/11/2022 Do you have difficulty doing errands alone? No MIGRATION.[id number] 026 Information not available 04/11/2022 Are you able to care for yourself? Yes MIGRATION.[id number] 026 Information not available 04/11/2022 Do you have difficulty dressing or bathing? No MIGRATION.4344359 026 Information not available 04/11/2022 What is your exercise level? None MIGRATION.[id number] 026 Information not available 04/11/2022 Mental Status Question Answer Note LastModified by Organizat ion Details LastModified Time Do you have difficulty concentrating, remembering or making decisions? No MIGRATION.[id number] Information not available 04/11/2022 Family History Relationship Description Onset Age of this Age Resolved Age Notes LastModified by Organization Details LastModified Time Mother Cerebrovascu lar accident MIGRATION.617 [id number] Not available 04/11/2022 08:45:39 Mother Osteoarthrit is MIGRATION.618 [id number] Not available 04/11/2022 08:45:39 Sister Malignant tumor of lung MIGRATION.693 [id number] Not available 04/11/2022 08:45:39 Father Disorder of cardiovascul ar system MIGRATION.290 [id number] Not available 04/11/2022 08:45:39 Notes:Diabetes Medical History No medical history recorded. Gynecological HistoryNo gynecological history recorded. Obstetrics History GPAL:G 0 P 0 0 0 0 Immunizations Vaccine Type Date Status Note Provider Nam e and Address Organization Details Recorded Time Influenza, split virus, trivalent, preservative 1 completed Not Available [facility] 04/11/2022 08:54:04 Influenza, split virus, trivalent, preservative 2 completed Not Available [facility] 04/11/2022 08:54:04 COVID-19, mRNA, LNP-S, PF, 30 mcg/0.3 mL dose 1 completed Not Available [facility] 04/11/2022 08:54:04 COVID-19, mRNA, LNP-S, PF, 30 mcg/0.3 mL dose 1 completed Not Available [facility] 04/11/2022 08:54:04 COVID-19, mRNA, LNP-S, PF, 30 mcg/0.3 mL dose 1 completed Not Available [facility] 04/11/2022 08:54:04 Influenza, split virus, quadrivalent, preservative 0 completed Not Available [facility] 04/11/2022 08:54:04 Influenza, split virus, trivalent, preservative 5 completed Not Available [facility] 04/11/2022 08:54:04 zoster live 5 completed Not Available [facility] 04/11/2022 08:54:04 pneumococcal polysaccharide PPV23 1 completed Not Available [facility] 04/11/2022 08:54:04 Influenza, high-dose, trivalent, PF 9 completed Not Available [facility] 04/11/2022 08:54:05 Influenza, high-dose, trivalent, PF 8 completed Not Available [facility] 04/11/2022 08:54:05 Influenza, high-dose, trivalent, PF 6 completed Not Available [facility] 04/11/2022 08:54:05 Influenza, split virus, quadrivalent, PF 5 completed Not Available [facility] 04/11/2022 08:54:05 Pneumococcal conjugate PCV 13 6 completed Not Available [facility] 04/11/2022 08:54:05 Influenza, split virus, quadrivalent, PF 4 completed Not Available [facility] 04/11/2022 08:54:05 Tdap 4 completed Not Available [facility] 04/11/2022 08:54:05 Influenza, split virus, trivalent, PF 3 completed Not Available [facility] 04/11/2022 08:54:06 Past Encounters Encounter ID Performer Location Encounter Start Date Encounter Closed Date Diagnosis/Indication Diagnosis SNOMED-CT Code Diagnosis ICD10 Code Diagnosis Note [id number] [facility] [place] [address] [place] [address] 04/20/2020 00:00:00 04/26/2020 13:51:58 [id number] [facility] [place] [address] [place] [address] 06/20/2020 00:00:00 06/20/2020 13:59:20 [id number] [facility] [place] [address] [place] [address] 11/30/2020 00:00:00 11/30/2020 14:21:57 [id number] [facility] [place] [address] [place] [address] 06/28/2021 00:00:00 06/28/2021 09:41:46 [id number] [facility] [place] [address] [place] [address] 08/09/2021 00:00:00 08/09/2021 11:11:09 [id number] [facility] [place] [address] [place] [address] 10/30/2021 00:00:00 10/30/2021 17:52:37 [id number] [facility] [place] [address] [place] [address] [address] [place] [address] 03/05/2022 00:00:00 03/05/2022 11:18:26 [id number] FRANCISCO Leggett [facility] [place] [address] [place] [address] 05/01/2022 10:03:27 05/01/2022 10:27:48 Acute conjunctivitis 14397765 H10.32 Advised to use drops as directed. Keep eye clean with gentle baby soap/warm water. Warm compresses for comfort. Persistent cough 6123163 02 R05.3 Exacerbate d by smoking.Wi ll do course of prednisone , advised she continue otc cough medication as needed. [id number] Lourdes Glasgow MD [facility] [place] [address] [place] [address] 09/03/2022 10:40:26 09/03/2022 12:16:24 Essential hypertension 07632424 I10 stablecont inue hctz 12.5 mg dailylabs up to datef/u in 6 months Dysuria 79133436 R30.0 check UA per pt request [id number] Lourdes Glasgow MD [facility] [place] [address] [place] [address] 04/29/2023 12:09:46 04/29/2023 13:01:27 Vitamin D deficiency 52840812 E55.9 Goiter 8905172 E04.9 Essential hypertension 12399904 I10 stablecont inue hctz 12.5 mg dailycheck labsf/u in 6 months [id number] Lourdes Glasgow MD [facility] [place] [address] [place] [address] 06/24/2023 14:42:16 06/24/2023 15:33:01 Health Concerns Section Related Observation LastModified by Organization Detai ls LastModified Time None Recorded Concern Status LastModified by Organization Details LastModified Time None Recorded Advance Directives Directive N: Payers Encounter Date Sequence Insurance Name Policy Number Policy Robles Covered Member ID Robles Member ID Guarantor Name 05/01/2022 1 [facility] [place] [facility] [employer] (MEDICARE - MEDICAID REPLACEMENT HMO) [id number] Lorie Wellingtonon [id number] Lorie Chauhan 09/03/2022 1 [employer] [facility] [facility] [place] [employer] (MEDICARE - MEDICAID REPLACEMENT HMO) [id number] Lorie Wellingtonon [id number] Lorie Wellingtonon 04/29/2023 1 [facility] [facility] [place] [employer] [place]MEDICARE - MEDICAID REPLACEMENT HMO) [id number] Lorie Wellingtonon [id number] Lorie Wellingtonon 06/24/2023 1 [facility] [facility] [facility] [place] [facility] [employer] (MEDICARE - MEDICAID REPLACEMENT HMO) [id number] Lorie [place]on [id number] Lorie Chauhan Notes Date Note Type Note Provider Name and Address Organization Details Recorded Time 05/01/2022 text/html Pt. states she w as sick about a month ago and called into the office and was given a course of doxycyline. She states it gave her diarrhea but did not seem to help symptoms. She is still sneezing/coughing up yellow sputum. Denies fevers. She has taken otc cold and flu. Last Saturday she noticed her left eye was irritated/seemed red. She has noticed a clear/sticky discharge. No change in vision. FRANCISCO Leggett [address] [address], [place], [address], [employer] 05/01/2022 10:28:54 09/03/2022 text/html Here to f/u on htn, no chest pain or sob, she continues to work on smoking cessation. She would like to give a urine sample, no significant symptoms, but she tends to have UTI without knowing it. No fever, no abd pain, no hematuria, no change in urinary urgency or frequency Lourdes Glasgow MD [address] [address], [place], [address], [employer] 09/03/2022 10:55:32 04/29/2023 text/html Here to f/u on htn, no chest pain or sob, she continues to work on smoking cessation. Lourdes Glasgow MD [address] [address], [place], [address], [place] [facility] 05/09/2023 21:28:56 OBGyn Episode No OBEpisode recorded.
--- OUTSIDE RECORDS SUMMARY | 2024-05-04 18:56 | XMS_ITS ---
Author Organization [facility] Address [address] [place] [id number] Care Team Providers Care Director Hematology Name Role Phone Juno Cage MD Unavailable [phone] Jason Fisher Chi, MD Unavailable [phone] Basilio Hua MD PhD Unavailable Andrew Zuniga MD Unavailable [phone] Michel Waldrop MD Unavailable [phone] Bryan Michelle MD Unavailable [phone] Chito Cunningham MD Unavailable [phone] Smiley Mays NP Primary Care Provider [phone] Active Problems Patient Care Coordination No te Formatting of this note migh t be different from the original. Ms. Lorie Chauhan is a 78-year-old with a lung nodule. Patient initially presented with symptoms of syncope and back pain. The patient reported feeling hot and sweaty and sick to her stomach and then passed out. On 03/31/2018 the patient underwent a CT angiogram to rule out a pulmonary embolism. This demonstrated an 11 mm nodule in the right lung lower lobe. This previously measured 6 mm in November 2016. Additional findings included a stable ground-glass opacity in the right upper lobe that has not changed since November 2016. An additional nodule in the right middle lobe measured 7 mm and had been stable from November 2016. On 04/10/2018 the patient underwent a PET scan which noted a 1.5 x 0.8 cm nodule in the superior segment of the right lower lobe with a maximum SUV of 2.7. A right hilar lymph node measuring 1.6 x 1.2 cm had a maximum SUV of 4.1. Additional findings included mild mediastinal lymphadenopathy without evidence increased FDG uptake. There was no FDG uptake in the right middle lobe ground-glass opacity and smaller nodule. Patient is a current smoker. Patient is scheduled for carotid ultrasound and an echocardiogram. Patient presents today for further surgical evaluation. Review of Systems EENT: Positive for dentures Cardiovascular: Positive for high blood pressure Neurologic: Positive for syncope Respiratory positive for productive cough All other systems reviewed and are negative. Problem Noted Date Diagnosed Date BMI 29.0-29.9,adult 12/19/2023 Abdominal pain 02/13/2023 Arthritis 02/13/2023 Dysuria 02/13/2023 Gallstone 02/13/2023 Gastric ulcer 02/13/2023 Overview (02/13/2023): H. pylori + on biopsy Otitis media 02/13/2023 Upper respiratory infection 02/13/2023 Fracture, Colles, left, closed 2023 Herpes zoster 2023 Insomnia 2023 Polyp of colon 2023 Overview (2023): repeat colonoscopy 2018 Closed fracture of left wrist, initial encounter 12/26/2022 Hyperlipidemia 12/26/2022 Hypertension, essential 12/26/2022 Hypokalemia 12/26/2022 Hypomagnesemia 12/26/2022 Acute conjunctivitis of left eye 05/01/2022 Persistent cough 05/01/2022 Mitral valve annular calcification 11/30/2020 Recurrent urinary tract infection 11/30/2020 Encounter for removal of biliary stent 0 Overview (10/27/2019): Added automatically from request for surgery [id number] Encounter for removal of pancreatic stent 2019 Overview (10/27/2019): Added automatically from request for surgery [id number] Choledocholithiasis 10/12/2019 Overview (10/12/2019): Added automatically from request for surgery [id number] Other neutropenia 08/21/2018 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 Past Treatment and Therapy Plans Line Care Plan Name Start Date Discontinue Date Treatment Medications Discontinue Reason Plan Provider IV MAINTENANCE THERAPY PLAN 07/31/2018 04/23/2023 No medications scheduled. Automatic discontinuation of dormant plans Michel Waldrop MD Oncology Chemotherapy Treatment Plan Name Start Date Discontinue Date Treatment Medications Discontinue Reason Plan Provider Cycles PACLItaxel / CARBOplatin with Concurrent Radiation: Induction / Weekly - Non-Small Cell Lung 9 10/08/2018 CARBOplatin (PARAPLATIN) IVPB in 250 mLPACLItaxel (TAXOL) 100 ml Therapy Complete Michel Linares MD 1 of 1 cycle started Specialty Infusion Treatment Plan Name Start Date Discontinue Date Treatment Medications Discontinue Reason Plan Provider IV MAINTENANCE THERAPY PLAN 08/13/2018 10/08/2018 No medications scheduled. Therapy Complete Michel Waldrop MD Radiation Treatments * Course [id number]_2019 07/10/2018 - 08/21/2018 Treatment Period Energy Fraction Dose Fractions Total Dose Plans Planned RT LUNG 07/10/2018 - 08/21/2018 200 30 / 6,000 Reference Points Delivered [id number]_6000_DPV 07/10/2018 - 08/21/2018 6,000 Lifetime Dose Tracking * Chemical Lifetime Dose Automatic Entry Manual Entr y Fluoro Time 28.152 minutes 28.152 minutes 0 minutes Air kerma at the reference point (Ka,r) 651.12 mGy 6 51.12 mGy 0 mGy DLP 9,774 mGycm 9,774 mGycm 0 mGycm
--- OUTSIDE RECORDS SUMMARY | 2024-05-04 18:56 | XMS_ITS | CONTINUITY OF CARE DOCUMENT ---
Author Name geraldine chandler Address Unknown Organization [facility] Address [address] [place] [address] Phone [phone] Care Team Providers Care Newspaper Writer Name Role Phone Andrew Zuniga MD Unavailable [phone] POP RAMOS MD Unavailable [phone] POP RAMOS MD Unavailable [phone] PROBLEMS Condition Status Date Provider Notes Family History of CVA or Stroke: active ? Mitchell estela Zuniga MD Syncope active Andrew Zuniga MD Tobacco abuse active Andrew Zuniga MD Emphysema active Andrew Zuniga MD Hyperglycemia active Andrew Zuniga MD Lung cancer active Andrew Zuniga MD Preoperative cardiovascular examination active Andrew Zuniga MD HTN essential active Andrew Zuniga MD ENCOUNTERS Date Type Provider Location Encounter Diag nosis 1 - 1 In-person encounter Office Visit Andrew Zuniga MD [facility] [facility] Family History of CVA or Stroke:SyncopeTobacco abuseEmphysemaHyperglycemiaLung cancerPreoperative cardiovascular examinationHTN essential VITAL SIGNS Date Observation Value Provider Body Mass Index (Ratio) 32.19 kg/m2 Zach Zuniga MD blood pressure, cuff size regular Cy kathleen Guerra blood pressure, diastolic 70 mm[Hg] Cy kathleen Guerra blood pressure, systolic 130 mm[Hg] Nikki Guerra oxygen saturation, oximetry 96 % Areli Guerra respiratory rate E&M 16 /min Areli Guerra pulse rate 100 /min Areli lizarraga weight E&M 176 [lb_av] Areli lizarraga height E&M 62 [in_i] Areli lizarraga ALLERGIES No Known Drug Allergies RESULTS Date Observation Value Provider Reference Range Interpretation Location pro brain natriuretic peptide 242 pg/mL [facility] 0-738 hemoglobin A1C, blood, as % of total hemoglobin 5.8 % [facility] 4.8-5.6 High lipoprotein, beta, serum, point, quantitative, calculated 87 mg/dL [facility] 0-99 very low density lipoproteins 23 mg/dL [facility] 5-40 HDL cholesterol, serum 54 mg/dL [facility] >39 triglyceride, serum, random 113 mg/dL [facility] 0-149 cholesterol, serum 164 mg/dL [facility] [phone]/04/02 calcium, serum 9.4 mg/dL [facility] 8.7-10.3 carbon dioxide, venous blood 26 mmol/L [facility] 20-29 chloride, serum 101 mmol/L [facility] 96-106 potassium, serum 4.0 mmol/L [facility] 3.5-5.2 sodium, serum 142 mmol/L [facility] [phone]/04/02 urea nitrogen/creatini ne ratio, serum 16 [facility] 12-28 eGFR if 73 mL/min/{1. 73_m2} [facility] >59 eGFR if not 63 mL/min/{1. 73_m2} [facility] >59 creatinine, serum 0.88 mg/dL [facility] 0.57-1.00 urea nitrogen, blood 14 mg/dL [facility] 8-27 blood glucose, random 99 mg/dL [facility] 65-99 HISTORY OF MEDICATION USE Medication Status Instructions Dates Provider Indications Com ments HYDROCHLOROTHIAZIDE TABLET active one tab daily Andrew Zuniga MD ADULT ASPIRIN REGIMEN 81 MG ORAL TABLET DELAYED RELEASE active Take 1 tablet a day Areli Guerra SOCIAL HISTORY Date Observation Value Provider number of grandchildren Andrew Zuniga MD social history E&M S moking History: P solo currently smokes every day. P atgreg has been counseled to quit. Andrew Zuniga MD smoking/tobacco cess ation, patient education and counseling yes Andrew Zuniga MD social history reviewed E&M revi ewed - no changes required Andrew Zuniga MD number of years as a smoker 35 a Areli Guerra smoking history, tot al pack/day 1/2PPD Areli Guerra cigarette use yes Areli metzger smoking status Current every day smoker C sylvia Guerra FAMILY HISTORY Family Member Condition Full Sister Family History of CV A or Stroke: Full Brother Family History of Di abetes: Full Brother Family History of CV A or Stroke: INSURANCE PROVIDERS Payer name Policy type / Coverage type [place] green party ID [facility] Medicaid 0 [id number] [place] Medicare [id number] ADVANCE DIRECTIVES Name Date DISCUSSED - NO DECISION MADE TREATMENT PLAN Date Name Performer Cardiology New Patie nt : H er updated medication list for this problem includes: Hydrochlorothiazide Tablet (Hydrochlorothiazide tabs) ..... One tab daily Adult Aspirin Regimen 81 Mg Oral Tablet Delayed Release (Aspirin) ..... Take 1 tablet a day BP today: 130/70 Andrew Zuniga MD Cardiology New Patie nt : s cheduled for removal of cancerous nodules on Saturday Andrew Zuniga MD Cardiology New Patient Andrew juares MD Cardiology New Patie nt : n o recurreces since original episode. only episode she's ever had. echo did not reveal strucutral abnormalitlies. Andrew Zuniga MD Cardiology New Patie nt : c esperanzak stress test and labs before providing clearance Andrew Zuniga MD Date Name PROBNP, N TERMINAL BASIC METABOLIC PANE L W/EGFR LIPID PANEL HEMOGLOBIN A1c Stress Regadenoson HISTORY OF PROCEDURES Procedure Date Procedure Name Provider Procedure Notes S tatus Regadenoson, 4 units Andrew Zuniga MD completed Cardiolite, 2 units Andrew Zuniga MD completed SPECT Images Jemal Gomez MD compl eted Stress EKG Javier Madrigal MD completed EKG Andrew Zuniga MD complet ed
--- OUTSIDE RECORDS SUMMARY | 2024-05-04 18:56 | XMS_ITS | Referral Summary ---
Author Organization [facility] Address [facility] [place] [address] Care Team Providers Care Grubber Name Role Phone Juno Cage MD Unavailable Jason Fisher Chi, MD Unavailable [phone] Basilio Hua MD PhD Unavailable Andrew Zuniga MD Unavailable [phone] Michel Waldrop MD Unavailable [phone] Bryan Michelle MD Unavailable Chito Cunningham MD Unavailable [phone] Smiley Mays NP Primary Care Provider [phone] Allergies Active Allergy Reactions Criticality Noted Date Comments Sulfamethoxazole-Trimethop rim Rash Medium 06/02/2018 Povidone-Iodine Rash Medium 10/20/2018 Topical betadine only. Does fine with iv contrast. Medications acetaminophen-co deine (TYLENOL with CODEINE #3) 300-30 mg per tablet Take 1-2 tablets by mouth every 4 (four) hours as needed for pain 30 tablet 01/08/2023 Active ascorbic acid (ascorbic acid with shawna hips) 500 mg tablet,chewable Take 1 tablet/chew tab (500 mg total) by mouth daily 60 tablet/chew tab 01/08/2023 Active hydroCHLOROthiaz wesley 12.5 mg tabletIndication s:hypertension Take 1 tablet (12.5 mg total) by mouth every morning 90 tablet 1 12/19/2023 Active fluticasone propion-salmeter oL (ADVAIR DISKUS) 250-50 mcg/dose diskus inhalerIndicatio ns:Chronic obstructive pulmonary disease, unspecified COPD type (HCC) INHALE 1 PUFF BY MOUTH TWICE DAILY RINSE MOUTH AFTER USE. DO NOT SWALLOW. 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 06/04/2018 Cancer Staging:Pathologic stage from 05/16/2018: pT2, pN1, cM0 - Signed by Noel Nash MD PhD on 06/16/2018 Adenocarcinoma of lung 05/21/2018 Malignant neoplasm of lung 05/12/2018 Chronic obstructive pulmonary disease 05/12/2018 Tobacco abuse 05/12/2018 Goiter 04/14/2018 Abdominal aortic aneurysm 11/18/2016 Overview (2023): Infrarenal 3.2 cm 2019 Vitamin D deficiency 10/09/2016 Immunizations Immunization Administration Dates Next Due Influenza, Quadrivalent, Hig h Dose, Preservative Free, Intrr 11/01/2023,12/01/2019 Influenza, Quadrivalent, Spl it, Intramuscular 11/30/2019 Influenza, Quadrivalent, Spl it, Preservative Free, Intramuscular 12/08/2014,10/30/2013 Influenza, Trivalent, High D ose, Split, Preservative Free, Intramuscular 12/11/2018,11/07/2017,12/06/2015 Influenza, Trivalent, IM (MDV) 12/07/2014,2011,12/12/2010 Influenza, Trivalent, Preser vative Free, Intramuscular 12/01/2012 Pfizer SARS-CoV-2 Monovalent Vaccination (12+ Yrs) PURPLE 11/17/2020,05/11/2020,04/13/2020,03/21 Pfizer Sars-Cov-2 Bivalent V accination (12+ YRS) 11/01/2023 Pneumococcal Conjugate PCV 13 10/27/2015 Pneumococcal Polysaccharide PPV23 10/17/2010 Td, adsorbed 06/14/1995 Tdap 04/29/2013 ZOSTER LIVE 07/14/2014,11/16/2008 Social History Tobacco Use Types Packs/Day Years Used Date Smoking Tobacco: Every Day Cigarettes 0.5 67 Started: 05/13/1957 Smokeless Tobacco: Never Tobacco Cessation:Ready to Q uit: Not Asked; Counseling Given: Not Answered Comments:not at this time Alcohol Use Standard Drinks/Week Comments Not Currently 1 (1 standard drink = 0.6 oz pur e alcohol) social [facility] Utilities Answer Date Recorded In the past 12 months has Catarizm, gas, oil, or water Adteractive threatened to shut off services in your home? No 12/26/2022 Social Connection and Isolat ion Panel [NHANES] Answer Date Recorded In a typical week, how many times do you talk on the phone with family, friends, or neighbors? More than three times a week 12/26/2022 How often do you get togethe r with friends or relatives? More than three times a week 12/26/2022 How often do you attend chur ch or cheondoism services? Never 12/26/2022 Do you belong to any clubs o r organizations such as hoahaoism groups, unions, fraternal or athletic groups, or school groups? No 12/26/2022 How often do you attend meet ings of the clubs or organizations you belong to? Never 12/26/2022 Are you , , di vorced, , never , or living with a partner? 12/26/2022 AUDIT-C Answer Date Recorded Q1: How often do you have a drink containing alcohol? Never 01/08/2023 Q2: How many drinks containi ng alcohol do you have on a typical day when you are drinking? Patient does not drink Q3: How often do you have si x or more drinks on one occasion? Never 01/08/2023 Overall Financial Resource Strain (CARDIA) Answe r Date Recorded How hard is it for you to pa y for the very basics like food, housing, medical care, and heating? Not hard at all 12/26/2022 PHQ-2 Answer Date Recorded PHQ-2 Total Score (If total score is 3 or more points, staff should administer the PHQ-9) 0 12/19/2023 Hunger Vital Sign Answer Date Recorded Within the past 12 months, y ou worried that your food would run out before you got the money to buy more. Never true 12/27/19 23 Within the past 12 months, t he food you bought just didn't last and you didn't have money to get more. Never true 12/26/2022 PRAPARE - Transportation Answer Date Re corded In the past 12 months, has l ack of transportation kept you from medical appointments or from getting medications? No 12/12 In the past 12 months, has l ack of transportation kept you from meetings, work, or from getting things needed for daily living? No 12/26/2022 Housing Stability Vital Sign Answer Jose e Recorded In the last 12 months, was t here a time when you were not able to pay the mortgage or rent on time? No 12/26/2022 In the last 12 months, how many places have you lived? 1 12/26/2022 In the last 12 months, was t here a time when you did not have a steady place to sleep or slept in a correction (including now)? No 12/26/2022 Personal Safety Answer Date Recorded Have you ever been in or are you currently in a harmful physical or emotional relationship or is someone making you feel afraid or unsafe? Denies 01/08/2023 Comments No Sex and Gender Information Value Date Recorded Sex Assigned at Not on file Legal Sex Female 5:40 PM BELTING CUTTER Gender Identity Not on file Sexual Orientation Not on file Last Filed Vital Signs Vital Sign Reading Time Taken Comments Blood Pressure 122/70 12/19/2023 9:22 AM BELTING CUTTER Pulse 112 12/19/2023 9:22 AM BELTING CUTTER Temperature 36.7 C (98 F) 12/19/2023 9:22 AM BELTING CUTTER Respiratory Rate 18 05/23/2023 8:08 AM CDT Oxygen Saturation 94% 12/19/2023 9:22 AM BELTING CUTTER Inhaled Oxygen Concentration - - Weight 72.1 kg (159 lb) 12/19/2023 9:22 AM BELTING CUTTER Height 157.5 cm (5' 2 ) 12/19/2023 9:22 AM BELTING CUTTER Body Mass Index 29.08 12/19/2023 9:22 AM BELTING CUTTER Plan of Treatment Not on file Medical Devices Implanted Type Area Head Of Digital Device Identifier Shelf Expiration Date Model / Serial / Lot Ang[employer] [id number] Xcela 8fr 1.6mm 1 Lumen Power Injectable Attach Catheter Fill - [id number] Implanted:Qty: 1 on 07/04/2018 at [facility] Ang[employer] 01/05/2023 [id number] / / [id number] [employer] Screw Kreulock Compression Titanium 2.4x18mm [id number] - [id number] Implanted:Qty: 1 on 01/08/2023 by Chito Cunningham MD at [facility] Left: Wrist [employer] AR-8724VCL -18 / / [employer] Screw Kreulock Compression Titanium 3.5x14mm [id number] - [id number] Implanted:Qty: 1 on 01/08/2023 by Chito Cunningham MD at [facility] Left: Wrist [employer] AR-8935CL- 14 / / [employer] Screw Kreulock Compression Titanium 3.5x14mm [id number] - [id number] Implanted:Qty: 1 on 01/08/2023 by Chito Cunningham MD at [facility] Left: Wrist [employer] AR-8935CL- 14 / / [employer] Orthoblast Ii Allograft Paste Filler 3cc Bone Void Demineralized -030 - [id number] - [id number] Implanted:Qty: 1 on 01/08/2023 by Chito Cunningham MD at [facility] Left: Wrist [employer] 09/08/2023 / [id number] / [id number] [employer] Low Profile Screws 3.5mm 16mm Self Tap Solid Hexalobe Midfoot Ar-8935-16 - [id number] Implanted:Qty: 1 on 01/08/2023 by Chito Cunningham MD at [facility] Left: Wrist [employer] AR-8935-16 / / [employer] Plate Bone Narrow 4 Hole Left Ti [id number] - [id number] Implanted:Qty: 1 on 01/08/2023 by Chito Cunningham MD at [facility] Left: Wrist [employer] AR-8916DNL -04 / / [employer] Screw Kreulock Compression Titanium 2.4x16mm [id number] - [id number] Implanted:Qty: 1 on 01/08/2023 by Chito Cunningham MD at [facility] Left: Wrist [employer] AR-8724VCL -16 / / [employer] Screw Kreulock Compression Titanium 2.4x16mm [id number] - [id number] Implanted:Qty: 1 on 01/08/2023 by Chito Cunningham MD at [facility] Left: Wrist [employer] AR-8724VCL -16 / / [employer] Screw Kreulock Compression Titanium 2.4x16mm [id number] - [id number] Implanted:Qty: 1 on 01/08/2023 by Chito Cunningham MD at [facility] Left: Wrist [employer] AR-8724VCL -16 / / Explanted Type Area Head Of Digital Device Identifier Shelf Expiration Date Model / Serial / Lot [employer] Inc [id number] [place] 10fr 5cm Taper Tip Soft Proximal Distal Flap Gentle - [id number] Implanted:Qty: 1 on 10/14/2019 by Faizan Jacome MD at [facility] Explanted:Qty: 1 on 11/04/2019 at [facility] N/A: Bile Duct [employer] 06/28/2022 [id number] / / [id number] [employer] 6552 Mckeon 5fr 5cm Flexible .035in Small Pigtail Curve Stent - [id number] Implanted:Qty: 1 on 10/14/2019 by Faizan Jacome MD at [facility] Explanted:Qty: 1 on 11/04/2019 at [facility] N/A: Pancreas [employer] 05/11/2024 [id number] / / [id number] Wires Explanted:Qty: 2 on 01/08/2023 by Chito Cunningham MD Left: Wrist Insurance [facility] Member Subscriber Plan / Payer (Ef fective 2021-Present) Name:ChauhanLorie chambers Relation to Subscriber:Self Name:ChauhanLorie Payer ID:[id number] (NAIC) Type:MEDICAID RISK OTHER Address: [address] [facility] Member Subscriber Plan / Payer (Ef fective 2021-Present) Name:Lorie Chauhan Relation to Subscriber:Self Name:Lorie Chauhan Payer ID:[id number] (NAIC) Type:MEDICAID RISK OTHER Address: [address] Advance Directives For more information, please contact: [phone] * Full Code (Latest Code Status on File) Date Activated Date Inactivated Comments 12/26/2022 7:14 AM 12/27/2022 2:55 PM * Full Code Date Activated Date Inactivated Comments 09/04/2021 8:03 AM 09/05/2021 5:12 AM * Full Code Date Activated Date Inactivated Comments 11/04/2019 2:24 PM 11/04/2019 9:40 PM * Full Code Date Activated Date Inactivated Comments 10/14/2019 8:05 AM 10/14/2019 5:30 PM * Full Code Date Activated Date Inactivated Comments 07/04/2018 8:15 AM 07/04/2018 2:33 PM Care Teams Grubber Relationship Specialty Start Date End Date Smiley Mays RN [employer] [address] [address] PCP - General Internal Medicine 12/19/23 Juno Cage MD Referring Physician Thoracic Surgery 06/04/18 Jason Fisher Chi, MD [facility] Reo Pulmonary Disease 06/11/18 Basilio Hua MD PhD Operator Coating Furnace Dermatology 06/11/18 Andrew Zuniga MD Process Engineering Technician Cardiology 06/11/18 Michel Waldrop MD Medical Oncologist/Equipment Operator/Laborer Medical Oncology 06/11/18 Bryan Michelle MD Radiation Oncologist Radiation Oncology 08/18/18 Chito Cunningham MD [address] [address] Consulting Physician Orthopedic Surgery 12/27/22
--- OUTSIDE RECORDS SUMMARY | 2024-05-04 18:56 | XMS_ITS | Clinical Summary ---
Author Organization [facility] Address [address] [place] [address] Care Team Providers Care Ammonia Operator Name Role Phone Juno Cage MD Unavailable [phone] Jason Fisher Chi, MD Unavailable [phone] Basilio Hua MD PhD Unavailable Andrew Zuniga MD Unavailable [phone] Michel Waldrop MD Unavailable [phone] Bryan Michelle MD Unavailable Chito Cunningham MD Unavailable [phone] Smiley Mays NP Primary Care Provider [phone] Allergies Active Allergy Reactions Criticality Noted Date [...] (10/27/2019): Added automatically from request for surgery [id number] Encounter for removal of pancreatic stent 2019 Overview (10/27/2019): Added automatically from request for surgery [id number] Choledocholithiasis 10/12/2019 Overview (10/12/2019): Added automatically from request for surgery [id number] Other neutropenia 08/21/2018 Primary adenocarcinoma of lower [...] adsorbed 06/14/1995 Tdap 04/29/2013 ZOSTER LIVE 07/14/2014,11/16/2008 Surgical History Surgery Date Site/Laterality Comments CHOLECYSTECTOMY PARTIAL HYSTERECTOMY BRONCHOSCOPY 05/08/2018 OTHER SURGICAL HISTORY nodules removed off of vocal cords COLONOSCOPY 2014, 2012 ESOPHAGOGASTRODUODENOSCOPY 2014, 2012 LUNG SURGERY 06/18/2018 malignant nodule which was removed PORT PLACEMENT CHEST >5 YEARS 07/04/2018 N/A ERCP UPPER GASTROINTESTINAL ENDOSCOPY PORT REMOVAL 09/04/2021 N/A CLOSED REDUCTION AND PERCUTA NEOUS PINNING DISTAL RADIUS FRACTURE 12/26/2022 Left LT.WRIST DISTAL RADIUS CLOSED REDUCTION/PER.PINNIN G Medical History Medical History Date Comments HTN (hypertension) HLD (hyperlipidemia) Gallstone Gastric ulcer 2012 Herpes zoster AAA (abdominal aortic aneurysm) being monitored by PCP Non-small cell carcinoma of right lung (HCC) Thyroid nodule incidentially fo und 04/10/2018 with carotid doppler results Family History Medical History Relation Name Comments Stroke Brother Aneurysm Mother No Known Problems Sister Anesthesia problems Neg Hx Relation Name Status Comments Brother pt reports 3 br others that had CVAs Father Mother of aneurys m age 58 Sister Social History Tobacco Use Types Packs/Day Years Used Date Smoking Tobacco: Every Day Cigarettes 0.5 67 Started: 05/13/1957 Smokeless Tobacco: Never Tobacco Cessation:Ready to Q uit: Not Asked; Counseling Given: Not Answered Comments:not at this time Alcohol Use Standard Drinks/Week Comments Not Currently 1 (1 standard drink = 0.6 oz pur e alcohol) social Workle Utilities Answer Date Recorded In the past 12 months has th e [employer], gas, oil, or water [employer] threatened to shut off services in your [...] often do you attend chur ch or church services? Never 12/26/2022 Do you belong to any clubs o r organizations such as orthodox groups, unions, fraternal or athletic groups, or [...] place to sleep or slept in a care home (including now)? No 12/26/2022 Personal Safety Answer Date Recorded Have you ever been in or are you currently in a harmful physical or emotional relationship or is someone making you feel afraid or unsafe? Denies 01/08/2023 Comments No Sex and Gender Information Value Date Recorded Sex Assigned at Not on file Legal Sex Female 5:40 PM SCHOOL EXAMINER Gender Identity Not on file Sexual Orientation Not on file Obstetrics History Last Filed Vital Signs Vital Sign Reading Time Taken Comments Blood Pressure 122/70 12/19/2023 9:22 AM SCHOOL EXAMINER Pulse 112 12/19/2023 9:22 AM SCHOOL EXAMINER Temperature 36.7 C (98 F) 12/19/2023 9:22 AM SCHOOL EXAMINER Respiratory Rate 18 05/23/2023 8:08 AM CDT Oxygen Saturation 94% 12/19/2023 9:22 AM SCHOOL EXAMINER Inhaled Oxygen Concentration - - Weight 72.1 kg (159 lb) 12/19/2023 9:22 AM SCHOOL EXAMINER Height 157.5 cm (5' 2 ) 12/19/2023 9:22 AM SCHOOL EXAMINER Body Mass Index 29.08 12/19/2023 9:22 AM SCHOOL EXAMINER Plan of Treatment Health Maintenance Due Date Last Done Comments Osteoporosis Screening-Bone Density Scan 1940 Hepatitis B Screening 01[birth year]01/1958 Well Visit 65+ 01/01/2005 Zoster Vaccine (1 of 2) 09/08/2014 07/14/2014, 11/16 DTaP/Tdap/Td Vaccine (2 - Td or Tdap) 04/30/2023 04/29/2013, 06/14/1995 Covid-19 Vaccine (6 - 2023-2 5 season) 2023 11/01/2023, 11/17/2020, 05/11/2020, Additional history exists Depression Screening 12/18/2024 12/19/2023 Fall Risk Assessment 12/18/2024 12/19/2023, 01/09/20 23 Pneumococcal vaccine 65+ Completed 10/27/2015, 07/2010 Influenza Vaccine Completed 11/01/2023, , 11/30/2019, Additional history exists Medical Devices Implanted Type Area Manager Implementation Device Identifier Shelf Expiration Date Model / Serial / Lot Angio Dynamics [id number] Xcela 8fr 1.6mm 1 Lumen Power Injectable Attach Catheter Fill - [id number] Implanted:Qty: 1 on 07/04/2018 at [facility] [employer] 01/05/2023 [id number] / / [id number] Arthrex Inc Screw Kreulock Compression Titanium 2.4x18mm [id number] - [id number] Implanted:Qty: 1 on 01/08/2023 by Chito Cunningham MD at [facility] Left: Wrist Arthrex Inc AR-8724VCL -18 / / Arthrex Inc Screw Kreulock Compression Titanium 3.5x14mm [id number] - [id number] Implanted:Qty: 1 on 01/08/2023 by Chito Cunningham MD at [facility] Left: Wrist Ar[employer]rex Inc AR-8935CL- 14 / / Arthrex Inc Screw Kreulock Compression Titanium 3.5x14mm [id number] - [id number] Implanted:Qty: 1 on 01/08/2023 by Chito Cunningham MD at [facility] Left: Wrist Arthrex Inc AR-8935CL- 14 / / Sea Spine Inc Orthoblast Ii Allograft Paste Filler 3cc Bone Void Demineralized - [id number] - [id number] Implanted:Qty: 1 on 01/08/2023 by Chito Cunningham MD at [facility] Left: Wrist Sea Spine Inc 09/08/2023 0 / [id number] / [id number] Arthrex Inc Low Profile Screws 3.5mm 16mm Self Tap Solid Hexalobe Midfoot Ar-8935-16 - [id number] Implanted:Qty: 1 on 01/08/2023 by Chito Cunningham MD at [facility] Left: Wrist Ar[employer]rex Inc AR-8935-16 / / Arthrex Inc Plate Bone Narrow 4 Hole Left Ti [id number] - [id number] Implanted:Qty: 1 on 01/08/2023 by Chito Cunningham MD at [facility] Left: Wrist Ar[employer]rex Inc AR-8916DNL -04 / / Arthrex Inc Screw Kreulock Compression Titanium 2.4x16mm [id number] - [id number] Implanted:Qty: 1 on 01/08/2023 by Chito Cunningham MD at [facility] Left: Wrist Ar[employer]rex Inc AR-8724VCL -16 / / Arthrex Inc Screw Kreulock Compression Titanium 2.4x16mm [id number] - [id number] Implanted:Qty: 1 on 01/08/2023 by Chito Cunningham MD at [facility] Left: Wrist Ar[employer]rex Inc AR-8724VCL -16 / / Ar[employer]rex Inc Screw Kreulock Compression Titanium 2.4x16mm [id number] - [id number] Implanted:Qty: 1 on 01/08/2023 by Chito Cunningham MD at [facility] Left: Wrist Ar[employer]rex Inc AR-8724VCL -16 / / Explanted Type Area Manager Implementation Device Identifier Shelf Expiration Date Model / Serial / Lot FloQast Medical Inc [id number] Cotton-Hastings 10fr 5cm Taper Tip Soft Proximal Distal Flap Gentle - [id number] Implanted:Qty: 1 on 10/14/2019 by Faizan Jacome MD at [facility] Explanted:Qty: 1 on 11/04/2019 at [facility] N/A: Bile Duct Flo[employer] Medical Inc 06/28/2022 [id number] / / [id number] [employer] 6552 Mckeon 5fr 5cm Flexible .035in Small Pigtail Curve Stent - [id number] Implanted:Qty: 1 on 10/14/2019 by Faizan Jacome MD at [facility] Explanted:Qty: 1 on 11/04/2019 at [facility] N/A: Pancreas [employer] 05/11/2024 6552 / / [id number] Wires Explanted:Qty: 2 on 01/08/2023 by Chito Cunningham MD Left: Wrist Insurance [facility] [place] [facility] [place] [facility] Advance Directives For more information, please contact: [phone] * Full Code (Latest Code Status on [...] 8:15 AM 07/04/2018 2:33 PM Care Teams Ammonia Operator Relationship Specialty Start Date End Date Smiley Mays NP [address] [facility] [address] [place] [address] PCP - General Internal Medicine 12/19/23 Juno Cage MD Referring Physician Thoracic Surgery 06/04/18 Jason Fisher Chi, MD Harnessmaker Pulmonary Disease 06/11/18 Basilio Hua MD PhD Vice President Education Dermatology 06/11/18 Andrew Zuniga MD Mold Loft Worker Cardiology 06/11/18 Michel Waldrop MD Medical Oncologist/Slunk Skin Curer Medical Oncology 06/11/18 Bryan Michelle MD Radiation Oncologist Radiation Oncology 08/18/18 Chito Cunningham MD [address] [address] Consulting Physician Orthopedic Surgery 12/27/22
--- OUTSIDE RECORDS SUMMARY | 2024-05-04 18:56 | XMS_ITS | Clinical Summary ---
Author Organization [facility] Address [address] [place] [address] Care Team Providers Care Fish Checker Name Role Phone Unavailable Primary Care Provider Unavailabl e Social History Tobacco Use Types Packs/Day Years Used Date Smoking Tobacco: Never Assessed Comments Unknown Sex and Gender Information Value Date Recorded Sex Assigned at Not on file Legal Sex Female 2:33 PM BOILER/CHILLER TECHNICIAN Gender Identity Not on file Sexual Orientation Not on file Plan of Treatment Health Maintenance Due Date Last Done Comments DEXA Bone Density 1940 Hepatitis C Virus (HCV) Screening 1940 Zoster Immunization (2 of 3) 09/08/2014 07/14/2014, 11/16/2008 Respiratory Syncytial Virus (RSV) Immunization (Adult) (1 - 1-dose 75+ series) 01/01/2015 Influenza Immunization (#1) 10/13/202311/12, 12/11/2018, 11/07/2017, Additional history exists SARS-COV-2 Immunization ( season) 2023 DTaP/Tdap/Td Immunization Discontinued 04/29/2013, 04/1995 TdaP Immunization Completed 04/29/2013 Pneumococcal Immunization (50+ years) Completed 10/27/2015, 10/17/2010 Pneumococcal Immunization Combined Discontinued 10/27/2015, 10/17/2010 Hepatitis B Immunization Aged Out No longer eligible based on patient's age to complete this topic Meningococcal Immunization (ACWY) Aged Out No longer eligible based on patient's age to complete this topic Rotavirus Immunization Aged Out No lo nger eligible based on patient's age to complete this topic
--- OUTSIDE RECORDS SUMMARY | 2024-05-04 20:56 | XMS_ITS | Referral Summary ---
Author Organization [facility] Address [facility] [place] [address] Care Team Providers Care Regulatory Process Manager Name Role Phone Juno Cage MD Unavailable Jason Fisher Chi, MD Unavailable [phone] Basilio Hua MD PhD Unavailable Andrew Zuniga MD Unavailable [phone] Michel Waldrop MD Unavailable [phone] Bryan Michelle MD Unavailable Chito Cunningham MD Unavailable [phone] Smiley Mays NP Primary Care Provider [phone] Allergies Active Allergy Reactions Criticality Noted Date [...] daily 60 tablet/chew tab 01/08/2023 Active hydroCHLOROthiaz welsey 12.5 mg tabletIndication s:hypertension Take 1 tablet [...] (10/27/2019): Added automatically from request for surgery [id number] Encounter for removal of pancreatic stent 2019 Overview (10/27/2019): Added automatically from request for surgery [id number] Choledocholithiasis 10/12/2019 Overview (10/12/2019): Added automatically from request for surgery [id number] Other neutropenia 08/21/2018 Primary adenocarcinoma of lower [...] Recorded In the past 12 months has [employer], gas, oil, or water [employer] threatened to shut off services in your [...] often do you attend chur ch or hindu services? Never 12/26/2022 Do you belong to any clubs o r organizations such as religion groups, unions, fraternal or athletic groups, or [...] place to sleep or slept in a nursing home (including now)? No 12/26/2022 Personal Safety Answer Date Recorded Have you ever been in or are you currently in a harmful physical or emotional relationship or is someone making you feel afraid or unsafe? Denies 01/08/2023 Comments No Sex and Gender Information Value Date Recorded Sex Assigned at Not on file Legal Sex Female 5:40 PM ADVENTURE CHALLENGE INSTRUCTOR Gender Identity Not on file Sexual Orientation Not on file Last Filed Vital Signs Vital Sign Reading Time Taken Comments Blood Pressure 122/70 12/19/2023 9:22 AM ADVENTURE CHALLENGE INSTRUCTOR Pulse 112 12/19/2023 9:22 AM ADVENTURE CHALLENGE INSTRUCTOR Temperature 36.7 C (98 F) 12/19/2023 9:22 AM ADVENTURE CHALLENGE INSTRUCTOR Respiratory Rate 18 05/23/2023 8:08 AM CDT Oxygen Saturation 94% 12/19/2023 9:22 AM ADVENTURE CHALLENGE INSTRUCTOR Inhaled Oxygen Concentration - - Weight 72.1 kg (159 lb) 12/19/2023 9:22 AM ADVENTURE CHALLENGE INSTRUCTOR Height 157.5 cm (5' 2 ) 12/19/2023 9:22 AM ADVENTURE CHALLENGE INSTRUCTOR Body Mass Index 29.08 12/19/2023 9:22 AM ADVENTURE CHALLENGE INSTRUCTOR Plan of Treatment Not on file Medical Devices Implanted Type Area Recreation Activities Coordinator Device Identifier Shelf Expiration Date Model / Serial / Lot Angio Dynamics [id number] Xcela 8fr 1.6mm 1 Lumen Power Injectable Attach Catheter Fill - [id number] Implanted:Qty: 1 on 07/04/2018 at [facility] [employer] 01/05/2023 [id number] / / [id number] Arthrex Inc Screw Kreulock Compression Titanium 2.4x18mm [id number] - [id number] Implanted:Qty: 1 on 01/08/2023 by Chito Cunningham MD at [facility] Left: Wrist Ar[employer] Inc AR-8724VCL -18 / / Ar[employer]rex Inc Screw Kreulock Compression Titanium 3.5x14mm [id number] - [id number] Implanted:Qty: 1 on 01/08/2023 by Chito Cunningham MD at [facility] Left: Wrist Ar[employer]rex Inc AR-8935CL- 14 / / Ar[employer]rex Inc Screw Kreulock Compression Titanium 3.5x14mm [id number] - [id number] Implanted:Qty: 1 on 01/08/2023 by Chito Cunningham MD at [facility] Left: Wrist Ar[employer] Inc AR-8935CL- 14 / / Sea Spine Inc Orthoblast Ii Allograft Paste Filler 3cc Bone Void Demineralized -030 - [id number] - [id number] Implanted:Qty: 1 on 01/08/2023 by Chito Cunningham MD at [facility] Left: Wrist [employer] Inc 09/08/2023 / [id number] / [id number] Arthrex Inc Low Profile Screws 3.5mm 16mm Self Tap Solid Hexalobe Midfoot Ar-8935-16 - [id number] Implanted:Qty: 1 on 01/08/2023 by Chito Cunningham MD at [facility] Left: Wrist Ar[employer] Inc AR-8935-16 / / Ar[employer]rex Inc Plate Bone Narrow 4 Hole Left Ti [id number] - [id number] Implanted:Qty: 1 on 01/08/2023 by Chito Cunningham MD at [facility] Left: Wrist Ar[employer] Inc AR-8916DNL -04 / / Ar[employer] Inc Screw Kreulock Compression Titanium 2.4x16mm [id number] - [id number] Implanted:Qty: 1 on 01/08/2023 by Chito Cunningham MD at [facility] Left: Wrist Ar[employer] Inc AR-8724VCL -16 / / Ar[employer]rex Inc Screw Kreulock Compression Titanium 2.4x16mm [id number] - [id number] Implanted:Qty: 1 on 01/08/2023 by Chito Cunningham MD at [facility] Left: Wrist Ar[employer] Inc AR-8724VCL -16 / / Ar[employer]rex Inc Screw Kreulock Compression Titanium 2.4x16mm [id number] - [id number] Implanted:Qty: 1 on 01/08/2023 by Chito Cunningham MD at [facility] Left: Wrist Ar[employer] Inc AR-8724VCL -16 / / Explanted Type Area Recreation Activities Coordinator Device Identifier Shelf Expiration Date Model / Serial / Lot WITOI Inc [id number] Cotton-Hastings 10fr 5cm Taper Tip Soft Proximal Distal Flap Gentle - [id number] Implanted:Qty: 1 on 10/14/2019 by Faizan Jacome MD at [facility] Explanted:Qty: 1 on 11/04/2019 at [facility] N/A: Bile Duct [employer] Inc 06/28/2022 [id number] / / [id number] [employer] 6552 Mckeon 5fr 5cm Flexible .035in Small Pigtail Curve Stent - [id number] Implanted:Qty: 1 on 10/14/2019 by Faizan Jacome MD at [facility] Explanted:Qty: 1 on 11/04/2019 at [facility] N/A: Pancreas [employer] Inc 05/11/2024 6552 / / [id number] Wires Explanted:Qty: 2 on 01/08/2023 by Chito Cunningham MD Left: Wrist Insurance [facility] Member Subscriber Plan / Payer (Ef fective 2021-Present) Name:ChauhanLorie chambers Relation to Subscriber:Self Name:ChauhanLorie Payer ID:[id number] (NAIC) Type:MEDICAID RISK OTHER Address: [address] [facility] Member Subscriber Plan / Payer (Ef fective 2021-Present) Name:Lorie Chauhan Relation to Subscriber:Self Name:Lorie Chauhan Payer ID:[id number] (NAIC) Type:MEDICAID RISK OTHER Address: [address] Advance Directives For more information, please contact: [phone] * Full Code (Latest Code Status on [...] 8:15 AM 07/04/2018 2:33 PM Care Teams Regulatory Process Manager Relationship Specialty Start Date End Date Smiley Mays LINING MARKER [address] [address] PCP - General Internal Medicine 12/19/23 Juno Cage MD Referring Physician Thoracic Surgery 06/04/18 Jason Fisher Chi, MD Progressive Care Manager Pulmonary Disease 06/11/18 Basilio Hua MD PhD Remelt Pan Tank Operator Dermatology 06/11/18 Andrew Zuniga MD Director Of Employee Development Cardiology 06/11/18 Michel Waldrop MD Medical Oncologist/Park Services Specialist Medical Oncology 06/11/18 Bryan Michelle MD Radiation Oncologist Radiation Oncology 08/18/18 Chito Cunningham MD [address] [address] Consulting Physician Orthopedic Surgery 12/27/22
--- OUTSIDE RECORDS SUMMARY | 2024-05-04 20:56 | XMS_ITS | CONTINUITY OF CARE DOCUMENT ---
Author Name geraldine chandler Address Unknown Organization [facility] Address [address] [facility] [address] [place] [address] Phone [phone] Care Team Providers Care Commercial Makeup Artist Name Role Phone Andrew Zuniga MD Unavailable POP RAMOS MD Unavailable [phone] POP RAMOS MD Unavailable PROBLEMS Condition Status Date Provider Notes Family History of CVA or Stroke: active ? Mitchell estela Zuniga MD Syncope active Andrew Zuniga MD Tobacco abuse active Andrew Zuniga MD Emphysema active Andrwe Zuniga MD Hyperglycemia active Andrew Zuniga MD Lung cancer active Andrew Zuniga MD Preoperative cardiovascular examination active Andrew Zuniga MD HTN essential active Andrew Zuniga MD ENCOUNTERS Date Type Provider Location Encounter Diag nosis 1 - 1 In-person encounter Office Visit Andrew Zuniga MD [place] [facility] Family History of CVA or Stroke:SyncopeTobacco [...] [employer] 0-149 cholesterol, serum 164 mg/dL [employer] 343-002 5637/04/02 calcium, serum 9.4 mg/dL [employer] 8.7-10.3 carbon dioxide, venous blood 26 mmol/L [employer] 20-29 chloride, serum 101 mmol/L [employer] 96-106 potassium, serum 4.0 mmol/L [employer] 3.5-5.2 sodium, serum 142 mmol/L [employer] 820-200 1605/04/02 urea nitrogen/creatini ne ratio, serum 16 [employer] [...] Payer name Policy type / Coverage type [place] red green party ID [facility] Medicaid 0 [id number] [place] Medicare [id number] ADVANCE DIRECTIVES Name Date DISCUSSED - NO [...]
--- OUTSIDE RECORDS SUMMARY | 2024-05-04 20:56 | XMS_ITS ---
Author Organization [facility] Address [address] [place] [address] Care Team Providers Care Towel Sewer Name Role Phone Juno Cage MD Unavailable [phone] Jason Fisher Chi, MD Unavailable [phone] Basilio Hua MD PhD Unavailable Andrew Zuniga MD Unavailable [phone] Michel Waldrop MD Unavailable [phone] Bryan Michelle MD Unavailable [phone] Chito Cunningham MD Unavailable [phone] Smiley Mays NP Primary Care Provider Active Problems Patient Care Coordination No te [...] (10/27/2019): Added automatically from request for surgery [id number] Encounter for removal of pancreatic stent 2019 Overview (10/27/2019): Added automatically from request for surgery [id number] Choledocholithiasis 10/12/2019 Overview (10/12/2019): Added automatically from request for surgery [id number] Other neutropenia 08/21/2018 Primary adenocarcinoma of lower [...]
--- OUTSIDE RECORDS SUMMARY | 2024-05-04 20:56 | XMS_ITS | Clinical Summary ---
Author Organization [facility] Address [address] [place] [address] Care Team Providers Care Forming Machine Tender Name Role Phone Unavailable Primary Care Provider Unavailabl e Social History Tobacco Use Types Packs/Day Years Used Date Smoking Tobacco: Never Assessed Comments Unknown Sex and Gender Information Value Date Recorded Sex Assigned at Not on file Legal Sex Female 2:33 PM PHARMACEUTICAL WORKER Gender Identity Not on file Sexual Orientation [...]
--- OUTSIDE RECORDS SUMMARY | 2024-05-04 20:56 | XMS_ITS | Clinical Summary ---
Author Organization [facility] Address [address] [place] [id number] Care Team Providers Care Dietary Services Manager Name Role Phone Juno Cage MD Unavailable [phone] Jason Fisher Chi, MD Unavailable [phone] Basilio Hua MD PhD Unavailable Andrew Zuniga MD Unavailable [phone] Michel Waldrop MD Unavailable [phone] Bryan Michelle MD Unavailable Chito Cunningham MD Unavailable [phone] Smiley Mays NP Primary Care Provider [phone] Allergies Active Allergy Reactions Criticality Noted Date [...] (10/27/2019): Added automatically from request for surgery [id number] Encounter for removal of pancreatic stent 2019 Overview (10/27/2019): Added automatically from request for surgery [id number] Choledocholithiasis 10/12/2019 Overview (10/12/2019): Added automatically from request for surgery [id number] Other neutropenia 08/21/2018 Primary adenocarcinoma of lower [...] = 0.6 oz pur e alcohol) social [employer] Answer Date Recorded In the past 12 months has th e [employer], gas, oil, or water [employer] threatened to shut off services in your [...] often do you attend chur ch or taoism services? Never 12/26/2022 Do you belong to any clubs o r organizations such as christianity groups, unions, fraternal or athletic groups, or [...] place to sleep or slept in a chcf (including now)? No 12/26/2022 Personal Safety Answer Date Recorded Have you ever been in or are you currently in a harmful physical or emotional relationship or is someone making you feel afraid or unsafe? Denies 01/08/2023 Comments No Sex and Gender Information Value Date Recorded Sex Assigned at Not on file Legal Sex Female 5:40 PM CERTIFIED NOVELL ADMINISTRATOR Gender Identity Not on file Sexual Orientation Not on file Obstetrics History Last Filed Vital Signs Vital Sign Reading Time Taken Comments Blood Pressure 122/70 12/19/2023 9:22 AM CERTIFIED NOVELL ADMINISTRATOR Pulse 112 12/19/2023 9:22 AM CERTIFIED NOVELL ADMINISTRATOR Temperature 36.7 C (98 F) 12/19/2023 9:22 AM CERTIFIED NOVELL ADMINISTRATOR Respiratory Rate 18 05/23/2023 8:08 AM CDT Oxygen Saturation 94% 12/19/2023 9:22 AM CERTIFIED NOVELL ADMINISTRATOR Inhaled Oxygen Concentration - - Weight 72.1 kg (159 lb) 12/19/2023 9:22 AM CERTIFIED NOVELL ADMINISTRATOR Height 157.5 cm (5' 2 ) 12/19/2023 9:22 AM CERTIFIED NOVELL ADMINISTRATOR Body Mass Index 29.08 12/19/2023 9:22 AM CERTIFIED NOVELL ADMINISTRATOR Plan of Treatment Health Maintenance Due Date [...] history exists Medical Devices Implanted Type Area Heavy Forger Device Identifier Shelf Expiration Date Model / Serial / Lot [employer] [id number] Xcela 8fr 1.6mm 1 Lumen Power Injectable Attach Catheter Fill - [id number] Implanted:Qty: 1 on 07/04/2018 at [facility] [employer] 01/05/2023 [id number] / / [id number] [employer] Screw Kreulock Compression Titanium 2.4x18mm [id number] - [id number] Implanted:Qty: 1 on 01/08/2023 by Chito Cunningham MD at [facility] Left: Wrist [employer] AR-8724VCL -18 / / [employer] Screw Kreulock Compression Titanium 3.5x14mm [id number] - [id number] Implanted:Qty: 1 on 01/08/2023 by Chito Cunningham MD at [facility] Left: Wrist [employer] AR-8935CL- 14 / / [employer] Screw Kreulock Compression Titanium 3.5x14mm [id number] - [id number] Implanted:Qty: 1 on 01/08/2023 by Chito Cunningham MD at [facility] Left: Wrist [employer] AR-8935CL- 14 / / [employer] Orthoblast Ii Allograft Paste Filler 3cc Bone Void Demineralized - [id number] - [id number] Implanted:Qty: 1 on 01/08/2023 by Chito Cunningham MD at [facility] Left: Wrist [employer] 09/08/2023 0 / [id number] / [id number] [employer] Low Profile Screws 3.5mm 16mm Self Tap Solid Hexalobe Midfoot Ar-8935-16 - [id number] Implanted:Qty: 1 on 01/08/2023 by Chito Cunningham MD at [facility] Left: Wrist [employer] AR-8935-16 / / [employer] Plate Bone Narrow 4 Hole Left Ti [id number] - [id number] Implanted:Qty: 1 on 01/08/2023 by Chito Cunningham MD at [facility] Left: Wrist [employer] AR-8916DNL -04 / / [employer] Screw Kreulock Compression Titanium 2.4x16mm [id number] - [id number] Implanted:Qty: 1 on 01/08/2023 by Chito Cunningham MD at [facility] Left: Wrist [employer] AR-8724VCL -16 / / [employer] Screw Kreulock Compression Titanium 2.4x16mm [id number] - [id number] Implanted:Qty: 1 on 01/08/2023 by Chito Cunningham MD at [facility] Left: Wrist [employer] AR-8724VCL -16 / / [employer] Screw Kreulock Compression Titanium 2.4x16mm [id number] - [id number] Implanted:Qty: 1 on 01/08/2023 by Chito Cunningham MD at [facility] Left: Wrist [employer] AR-8724VCL -16 / / Explanted Type Area Heavy Forger Device Identifier Shelf Expiration Date Model / Serial / Lot [employer] [id number] Cotton-[place] 10fr 5cm Taper Tip Soft Proximal Distal Flap Gentle - [id number] Implanted:Qty: 1 on 10/14/2019 by Faizan Jacome MD at [facility] Explanted:Qty: 1 on 11/04/2019 at [facility] N/A: Bile Duct [employer] 06/28/2022 [id number] / / [id number] [employer] 6552 Mckeon 5fr 5cm Flexible .035in Small Pigtail Curve Stent - [id number] Implanted:Qty: 1 on 10/14/2019 by Faizan Jacome MD at [facility] Explanted:Qty: 1 on 11/04/2019 at [facility] N/A: Pancreas [employer] 05/11/2024 [id number] / / [id number] Wires Explanted:Qty: 2 on 01/08/2023 by Chito Cunningham MD Left: Wrist Insurance [facility] [place] [facility] [place] [facility] Advance Directives For more information, please contact: [phone] * Full Code (Latest Code Status on [...] 8:15 AM 07/04/2018 2:33 PM Care Teams Dietary Services Manager Relationship Specialty Start Date End Date Smiley Mays NP [address] [facility] [address] [place] [address] PCP - General Internal Medicine 12/19/23 Juno Cage MD Referring Physician Thoracic Surgery 06/04/18 Jason Fisher Chi, MD Curator Of Collections Pulmonary Disease 06/11/18 Basilio Hua MD PhD Light Rail Operator Dermatology 06/11/18 Andrew Zuniga MD Pockets And Pieces Necktie Operator Cardiology 06/11/18 Michel Waldrop MD Medical Oncologist/Subcontracts Manager Medical Oncology 06/11/18 Bryan Michelle MD Radiation Oncologist Radiation Oncology 08/18/18 Chito Cunningham MD [address] [address] Consulting Physician Orthopedic Surgery 12/27/22
[2024-05-04 21:27] LABS: Basophils Absolute Auto 0.1 K/mm3 (0.0-0.1); Basophils Percent Auto 0.9 % (0.2-1.2); Eosinophils Absolute Auto 0.1 K/mm3 (0-0.3); Hematocrit 44.1 % (37.0-47.0); Hemoglobin 14.7 g/dL (12.0-15.0); Immature Granulocyte Absolute 0.03 K/mm3 (0.00-0.031); Immature Granulocyte Percent A 0.4 % (0-0.5); Lymphocytes Absolute Auto 1.06 K/mm3 (0.9-3.2); Lymphocytes Percent Auto 15.3 % (18.3-44.2); Mean Corpuscular HGB Conc 33.3 g/dl (32-36); Mean Corpuscular Hemoglobin 30.9 pg (26-34); Mean Corpuscular Volume 92.8 fl (80-100); Mean Platelet Volume 9.7 fl (7.4-10.4); Monocytes Absolute Auto 0.5 K/mm3 (0.1-0.6); Monocytes Percent Auto 6.9 % (2.6-8.5); Neutrophils Absolute Auto 5.2 K/mm3 (1.3-6.7); Neutrophils Percent Auto 75.5 % (45.5-73.1); Platelet Count Result 137 k/mm3 (150-375); Red Blood Count 4.75 M/mm3 (4.2-5.4); Red Cell Distribution Width 13.5 % (11.5-14.5); White Blood Count 6.9 K/mm3 (4.5-10.0)
[2024-05-04 21:36] LABS: Alanine Aminotransferase 16 U/L (6-35); Alkaline Phosphatase 75 U/L (38-126); Anion Gap 9 mmol/L (4-12); Aspartate Amino Transferase 26 U/L (14-36); Bilirubin,Total 0.7 mg/dL (0.2-1.3); Blood Urea Nitrogen 14 mg/dL (7-17); Calcium 9.1 mg/dL (8.4-10.2); Carbon Dioxide 29 mmol/L (22-30); Chloride 99 mmol/L (98-107); Estimated CRCL calculation 46 ml/min; Estimated Glomerular Filt Rate > 60; Glucose 120 mg/dL (65-110); Potassium 3.8 mmol/L (3.4-5.0); Sodium 137 mmol/L (137-145)
[2024-05-04 21:46] LABS: INR 1.1; NT Pro B Type Natriuretic Pept 1650 pg/mL (19.9-100); Prothrombin Time 14.3 Seconds (11.1-14.7); Troponin I < 0.012 ng/mL (0.000-0.034)
[2024-05-04 21:47] LABS: Partial Thromboplastin Time 41.5 Seconds (22.3-36.8)
--- NOTE | 2024-05-04 21:57 | PC.NURSE ---
ed rt notified of neb treatment.
[2024-05-04 22:11] VITALS: PULSE 105; RESP 26
[2024-05-04 22:31] VITALS: PULSE 115; RESP 22
--- NOTE | 2024-05-04 22:57 | PC.NURSE ---
granddaughter on the phone requesting rsv testing. She also verbalized that she will be getting medications for that if that's what this is. COPD is hard to believe when shes 80 and we've never heard that before. This RN explained that viruses do not require or get treated with abx.
[2024-05-04 23:33] LABS: Influenza A QL RT-PCR Negative (Negative); Influenza B QL RT-PCR Negative (Negative); RSV RNA, RT-PCR Negative (Negative); SARS-CoV-2 RNA PCR Negative (Negative)
[2024-05-04 23:48] VITALS: BP 106/83; PULSE 112; RESP 24; O2SAT 99
== END 2024-05-04 23:49 | disposition home or self-care (01) ==
PROVIDERS: Registered Nurse; Emergency Provider Emergency Medicine; PCP Nurse Practitioner Family
DX: J44.1 Chronic obstructive pulmonary disease with (acute) exacerbation (principal); Z85.118 Personal history of other malignant neoplasm of bronchus and lung; I10 Essential (primary) hypertension; F17.210 Nicotine dependence, cigarettes, uncomplicated; Z20.822 Contact with and (suspected) exposure to COVID-19
CPT/HCPCS: 36415; 71046; 80053; 83880; 84484; 85025; 85055; 85610; 85730; 87637; 93005; 94640; 99284